=== PATIENT | female | born 1960 | race Caucasian/White ===

== ENCOUNTER 2024-09-05 14:42 | Outpatient (CLI) | payer MEDICARE, MEDICAID, SELFPAY ==
--- NOTE | 2024-09-05 14:46 | CA_ITS ---
APPROVED REPORT EXAM: Comprehensive 2D, Doppler, and color-flow Echocardiogram [employer]: Ricarda Murray RVT Ht: 5 ft 2 in Wt: 155lbs BSA: 1.72 BP: 115/66 mmHg Indications: HTN,DM,HLD,FATIGUE 2D Dimensions LA Volume 55.30 mL LA Volume Index 32.15 mL/m2 (M/F) 16-34 M-Mode Dimensions RVDd 2.56 cm (0.9-2.6) LA Diam 3.14 cm (1.9-4.0) LVDd 4.13 cm (3.5-5.7) LVDs 2.81 cm (3.5-5.7) IVSd 1.78 cm (0.6-1.1) PWd 0.50 cm (0.6-1.1) EF (Teich) 60.50% FS 32.00% EDV (Teich) 75.50 mL TAPSE 2.12 (<1.7) ESV (Teich) 29.80 mL LV Diastology E Decel Time 150 (160-240 msec) E/A Ratio 0.8 Aortic Valve DONOVAN Index 1.51 cm2/m2 AoV Peak Fabian. 125.0 (50-130 cm/s) AO Peak GR. 6.20 mmHg AO Mean GR. 4.60 (<5 mmHg) AO VTI 23.3 (18-25 cm) DONOVAN (VTI) 2.66 (2.5-4.5 cm2) Mitral Valve MV E Max Fabian. 105.0 (40-130 cm/s) MV A Velocity 126.0 (40-130 cm/s) E/A Ratio 0.83 MV PHT 44.0 ms Pulmonary Valve PV Peak Velocity 62.0 (50-150 cm/s) Left Ventricle The left ventricle is normal size. The left ventricular systolic function is normal. The left ventricular ejection fraction is within the normal range. There is increased LV wall thickness. There is normal LV segmental wall motion. The left ventricular diastolic function is normal. LVEF is 55%. Right Ventricle The right ventricle is normal size. The right ventricular systolic function is normal. Atria The left atrium is mildly dilated. The right atrium size is normal. There is no Doppler evidence of interatrial shunt. Aortic Valve Aortic valve is mildly thickened. There is no aortic valvular stenosis. Trace aortic regurgitation. Mitral Valve The mitral valve leaflets are mildly thickened. No evidence of mitral valve stenosis. Mild mitral regurgitation. Tricuspid Valve The tricuspid valve leaflets are thin and pliable. Trace tricuspid regurgitation. There is insufficient TR jet to estimate RVSP. Pulmonic Valve The pulmonary valve is normal in structure. Trace pulmonic regurgitation. Great Vessels The aortic root is normal in size. The ascending aorta is not well-visualized. IVC is normal in size and collapses >50% with inspiration. Pericardium There is no pericardial effusion. Other Information Study Quality: Fair Conclusion Normal biventricular systolic function. Mild LA dilation. Mild MR. Electronically signed by : Ama Atkins MD 09/11/2024 02:25:25
--- NOTE | 2024-09-05 14:53 | US_ITS ---
FINAL REPORT CLINICAL HISTORY: Hypertension COMPARISON: None FINDINGS: RENAL ULTRASOUND Ultrasound images of the kidneys were obtained. Incidental note is made of fatty change of the liver. The right kidney measures 9.3 cm in length. It is normal echogenicity. There is no hydronephrosis. The left kidney measures 9.0 cm in length. It is normal echogenicity. There is no hydronephrosis. IMPRESSION: Normal renal ultrasound. Reviewed, Interpreted and Dictated by Char Covington MD Transcribed by Helena Eli Authenticated and [facility][1]
== END 2024-09-05 23:59 | disposition home or self-care (01) ==
LOC: RAD 14:44
PROVIDERS: Visit Provider Physician Assistant
DX: R94.31 Abnormal electrocardiogram [ECG] [EKG] (principal); E11.9 Type 2 diabetes mellitus without complications; E78.5 Hyperlipidemia, unspecified; I10 Essential (primary) hypertension
CPT/HCPCS: 76770; 93306

== ENCOUNTER 2024-09-10 08:53 | Outpatient (CLI) | payer MEDICARE, MEDICAID, SELFPAY ==
--- NOTE | 2024-09-10 09:00 | CA_ITS ---
FINAL REPORT TECHNIQUE: Spectral and color Doppler exam CLINICAL HISTORY: HTN COMPARISON: none FINDINGS: DOPPLER RENAL VESSELS Intrarenal resistive indices on the right are 0.6--0.79, normal. Intrarenal resistive indices on the left are 0.52-0.81, normal . Renal size is normal and symmetric. Right main renal artery systolic velocity: 140 cm/sec. Aortic-right renal artery flow velocity ratio: 1.37 COMMENT: No evidence of hemodynamically significant renal artery stenosis Left main renal artery systolic velocity: 103 cm/sec. Aortic-left renal artery flow velocity ratio: 0.87 COMMENT: No evidence of hemodynamically significant renal artery stenosis . IMPRESSION: Stenosis classified as less than 50% bilaterally. CTA or gadolinium-enhanced MR may be considered as a more sensitive exam. Alternatively noncontrast MRI may be considered for assessing main renal arteries for stenosis as a more sensitive exam if the patient has renal insufficiency. Reviewed, Interpreted and Dictated by Char Covington MD Transcribed by Helena Eli Authenticated and [facility]
--- NOTE | 2024-09-10 09:00 | CA_ITS ---
FINAL REPORT CLINICAL HISTORY: LT CARTOID BRUIT,HTN COMPARISON: None FINDINGS: RIGHT CAROTID: CCA PSV - 62 cm/sec ICA PSV - 99cm/sec ICA/CCA PSV ratio - 1.6. Comments: Moderate plaque disease is noted. LEFTCAROTID: CCA PSV - 72. cm/sec ICA PSV - 68. cm/sec ICA/CCA PSV ratio - 1.0. Comments: Moderate plaque disease is noted. Antegrade flow is seen within the vertebral arteries. IMPRESSION: Carotid stenosis classified less than 50% Reviewed, Interpreted and Dictated by Char Covington MD Transcribed by Mackenzie Lynn Authenticated and [facility]
== END 2024-09-10 23:59 | disposition home or self-care (01) ==
LOC: RT 08:54
PROVIDERS: Visit Provider Physician Assistant
DX: R09.89 Other specified symptoms and signs involving the circulatory and respiratory systems (principal); I10 Essential (primary) hypertension; E11.9 Type 2 diabetes mellitus without complications; R94.31 Abnormal electrocardiogram [ECG] [EKG]; R47.81 Slurred speech; E78.49 Other hyperlipidemia
CPT/HCPCS: 93880; 93976

== ENCOUNTER 2025-04-01 08:34 | Outpatient (CLI) | payer MEDICARE, MEDICAID, SELFPAY ==
--- OUTSIDE RECORDS SUMMARY | 2025-04-01 08:53 | XMS_ITS | Clinical Summary ---
Author Organization Healthcare Address [address] [place] [address] Care Team Providers Care Retail Event Coordinator Name Role Phone Carol Maza MD Primary Care Provider Allergies Active Allergy Reactions Criticality Noted Date Comments Prednisone Other - please docum ent in the comment field,Unknown - Patient states they do not know rxn details Medium 05/02/2016 JITTERY---okay at lower doses Medications losartan-hydroCHLO ROthiazide (Hyzaar) 100-12.5 MG tablet 01/09/2021 Active Active Problems Problem Noted Date Diagnosed Date Proximal humerus fracture 03/26/2018 Family History Medical History Relation Name Comments Cardiac disorder Father Hypertension Father Hypertension Mother Other cancer Sibling Relation Name Status Comments Father Mother Sibling Social History Tobacco Use Types Packs/Day Years Used Date Smoking Tobacco: Never Smokeless Tobacco: Never Alcohol Use Standard Drinks/Week Comments Yes 0 (1 standard drink = 0.6 oz pur e alcohol) Comments Unknown Sex and Gender Information Value Date Recorded Sex Assigned at Not on file Legal Sex Female 7:58 PM EDT Gender Identity Not on file Sexual Orientation Not on file Last Filed Vital Signs Vital Sign Reading Time Taken Comments Blood Pressure 174/88 03/17/2021 8:03 AM EDT Pulse 87 03/17/2021 8:03 AM EDT Temperature 36.3 C (97.4 F) 01/02/2019 10:22 AM EDT Respiratory Rate 20 11/20/2018 1:48 PM EDT Oxygen Saturation 97% 03/17/2021 8:03 AM EDT Inhaled Oxygen Concentration - - Weight 71.7 kg (158 lb) 03/17/2021 8:03 AM EDT Height 157.5 cm (5' 2 ) 03/17/2021 8:03 AM EDT Body Mass Index 28.9 03/17/2021 8:03 AM EDT Plan of Treatment Health Maintenance Due Date Last Done Comments [facility]-Bone Density Scan 1960 [facility]Y-Depression Screening 1960 [facility]Y-Infant/Child/Adol SDOH Screenings 1960 UKY- SDOH Screenings 1976 UKY-Adult SDOH Screenings 1976 UKY-DTaP,Tdap,and Td Vaccine s (1 - Tdap) 1977 CT Colonography 10/18/2003 Colonoscopy 10/18/2003 FIT-DNA 10/18/2003 FIT 10/18/2003 FOBT 10/18/2003 Sigmoidoscopy 10/18/2003 UKY-Colorectal Cancer Screening 10/18/2003 UKY-Pneumococcal Vaccine: 50 + Years (1 of 1 - PCV) 2008 UKY-Zoster Vaccines (1 of 2) 2008 GPI-BPDJM-21 Vaccine ( - 20 24-25 season) 2024 UKY-Influenza Vaccine (#1) 2025 05/15/2020 UKY-RSV Vaccine: 60+ Years o r (1 - 1-dose 75+ series) 2033 [facility]Y-Cervical Cancer Screening Discontinued [facility]-HPV/Cotest Discontinued 11/19/1996 UKY-Pap Smear Discontinued 11/19/1996 HPV Vaccines Aged Out No longer eligi ble based on patient's age to complete this topic UKY-HIB Vaccines Aged Out No longer e ligible based on patient's age to complete this topic UKY-Hepatitis A Vaccines Aged Out No longer eligible based on patient's age to complete this topic UKY-IPV Vaccines Aged Out No longer e ligible based on patient's age to complete this topic UKY-Rotavirus Vaccines Aged Out No lo nger eligible based on patient's age to complete this topic Procedures Procedure Name Priority Date/Time Associated Diagnosis Comments CYTO DATA CONVERSION Routine 11/19/1996 12:00 AM EDT from Last 3 Months or Most Recently Relevant to Health Maintenance Results * Cytology (11/19/1996 12:00 AM EDT) 11/19/1996 11/20/1996 Narrative SUNQUEST - 11/28/1996 12:00 AM EDT [facility] MR #: [id number] [facility] [address] [place], [place] [address] 1960 (Age: 36) FW Collect Date: 11/19/1996 00:00 Receipt Date: 11/20/1996 00:00 Page 1 DEPARTMENT OF PATHOLOGY AND LABORATORY MEDICINE CYTOPATHOLOGY REPORT Email: [email or web address] * Converted Case * This report may not match the original report format ATTENDING MD/Practitioner: Johnny Cabral MD Service: OB Location: Reported: 11/28/1996 00:00 Collected: 11/19/1996 00:00 INTERPRETATION CERVICAL SCRAPE/ENDOCERVICAL SWAB WITHIN NORMAL LIMITS. SATISFACTORY BUT LIMITED BY SPARSE TO NO ENDOCERVICAL CELLS. Electronically Signed Out By Adithya Mcgee TOSHIA Tavarez (ASCP) No Signature Required Cervical cytology is a screening test primarily for squamous cancers and precursors and has associated false negative and positive results. New technologies such as liquid based sampling may decrease but will not eliminate all false negative results. Regular screening and follow-up of unexplained clinical signs and symptoms are recommended to minimize false negative results. Please see the ASCCP website (www.asccp.org) for followup recommendations. If HPV testing was requested, correlation with the results is suggested (please call Microbiology at [phone] for results). CLINICAL INFORMATION: Menstrual History: {Not Provided} Date of Last Menstrual Period: {Not Provided} SPECIMEN DESCRIPTION: A: CERVICAL/VAGINAL SMEAR, PAP ICD: F: {Not Entered} SNOMED CODES: 1; [id number] In cases where a pathologist has signed out the report, the service has been rendered in part by a resident. The signing pathologist has performed and is responsible for the reported pathologic evaluation. us Historical Provider LAB PATHOLOGY ORDERABLES Fin al Result SUNQUEST from Last 3 Months or Most Recently Relevant to Health Maintenance Insurance Care Teams Retail Event Coordinator Relationship Specialty Start Date End Date Carol Maza MD [address] [place] [address] [address] [place] [address] PCP - General 12/11/20
--- OUTSIDE RECORDS SUMMARY | 2025-04-01 08:53 | XMS_ITS | Clinical Summary ---
Author Organization [facility] Address [address] [place] [address] Care Team Providers Care Demand Planning Analyst Name Role Phone Francine Duque MD Primary Care Provider [phone] Allergies Active Allergy Reactions Criticality Noted Date Comments Prednisone Other (See Comments) Medium 05/02/2016 JITTERY---okay at lower doses Medications losartan-hydroc hlorothiazide (HYZAAR) 100-12.5 MG per tablet Take 1 tablet by mouth Daily. 0 9 Active albuterol sulfate HFA 108 (90 Base) MCG/ACT inhaler Inhale 2 puffs Every 4 (Four) Hours As Needed for Wheezing or Shortness of Air. 1 inhaler 9 Active Active Problems No known active problems Family History Medical History Relation Name Comments Heart disease Father Heart disease Mother Relation Name Status Comments Father Mother Social History Tobacco Use Types Packs/Day Years Used Date Smoking Tobacco: Never Alcohol Use Standard Drinks/Week Comments No 0 (1 standard drink = 0.6 oz pur e alcohol) Abuse Screen Answer Date Recorded Unsafe at Home or Work/School Not on file Feels Threatened by Someone? Not on file 05/2023 Does Anyone Keep You from Co ntacting Others or Doint Things Outside the Home? Not on file 05/10/2023 Physical Sign of Abuse Present Not on file 1 Housing Stability Answer Date Recorded Current Living Arrangements Not on file 04/30 Potentially Unsafe Housing Conditions Not on melanie e 05/10/2023 Family and Community Support Answer Griffin e Recorded Help with Day-to-Day Activities Not on file 05/10/2023 Lonely or Isolated Not on file 05/10/2023 Employment Answer Date Recorded Do you want help finding or keeping work or a demond b? Not on file 05/10/2023 Disabilities Answer Date Recorded Concentrating, Remembering, or Making Decisions Difficulty Not on file 05/10/2023 Doing Errands Independently Difficulty Not on fi le 05/10/2023 Education Answer Date Recorded Help with school or training? Not on file Preferred Language Not on file 05/10/2023 Comments No Sex and Gender Information Value Date Recorded Sex Assigned at Not on file Legal Sex Female 4:18 PM EDT Gender Identity Not on file Sexual Orientation Not on file Last Filed Vital Signs Vital Sign Reading Time Taken Comments Blood Pressure 140/84 06/18/2019 10:07 AM EST Pulse 100 06/18/2019 10:07 AM EST Temperature 37.1 C (98.8 F) 06/18/2019 10:07 AM EST Respiratory Rate 16 06/18/2019 10:07 AM EST Oxygen Saturation 98% 06/18/2019 10:07 AM EST Inhaled Oxygen Concentration - - Weight 68.9 kg (152 lb) 06/18/2019 10:07 AM EST Height 157.5 cm (5' 2 ) 06/18/2019 10:07 AM EST Body Mass Index 27.8 06/18/2019 10:07 AM EST Plan of Treatment Health Maintenance Due Date Last Done Comments DXA SCAN 1960 TDAP/TD VACCINES (1 - Tdap) 1977 MAMMOGRAM 1998 COLOGUARD 10/18/2003 COLON CANCER SCREENING 5 YEAR SIGMOIDOSCOPY 10/18/2003 COLONOSCOPY 10/18/2003 COLORECTAL CANCER SCREENING 10/18/2003 CT COLONOGRAPHY 10/18/2003 FECAL OCCULT BLOOD TEST 10/18/2003 FIT Testing (1 year) 10/18/2003 Pneumococcal Vaccine 50+ (1 of 1 - PCV) 2008 ZOSTER VACCINE (1 of 2) 2008 ANNUAL PHYSICAL 11/22/2016 HEPATITIS C SCREENING 11/22/2016 COVID-19 Vaccine (1 - season) 2024 INFLUENZA VACCINE 04/30/2025 Insurance [facility] MEDICARE ADVANTAGE [facility] HMO Care Teams Demand Planning Analyst Relationship Specialty Start Date End Date Francine Duque MD [address] [facility] [address] [place] [address] PCP - General Family Medicine 05/02/16
[2025-04-01 09:03] LABS: Hematocrit 34.8 % (37.0-47.0); Hemoglobin 11.1 g/dL (12.2-16.2); Immature Granulocytes % 0.5 %; Mean Corpuscular HGB Conc 31.9 g/dL (31.8-35.4); Mean Corpuscular Hemoglobin 28.8 pg (27.0-31.2); Mean Corpuscular Volume 90.2 fl (81-99); Nucleated Red Blood Cells % 0 %; Platelet Count 272 K/mm3 (142-424); Red Blood Count 3.86 M/mm3 (4.20-5.40); Red Cell Distribution Width-SD 42.9 fL; White Blood Count 8.6 K/mm3 (4.8-10.8)
[2025-04-01 09:42] LABS: Alanine Aminotransferase 12 U/L (12-78); Albumin Level 3.3 g/dl (3.5-5.0); Alkaline Phosphatase 112 U/L (38-126); Anion Gap 8.2 mEq/L (5-15); Aspartate Amino Transferase 21 U/L (14-36); Bilirubin,Direct 0.2 mg/dl (0.0-0.4); Bilirubin,Indirect 0.1 mg/dL (0.0-0.9); Bilirubin,Total 0.3 mg/dl (0.2-1.3); Bilirubin,Unconjugated 0.2 mg/dL (0.0-1.1); Blood Urea Nitrogen 40 mg/dl (7-17); Calcium 9.3 mg/dl (8.4-10.2); Carbon Dioxide 25 mmol/L (22.0-30.0); Chloride 112 mmol/L (98-107); Cholesterol 187 mg/dl (140-200); Creatinine,Serum 2.00 mg/dl (0.52-1.04); Estimated Glomerular Filt Rate 25 ml/min (>60); GFR (African American) 30 ML/MIN (>60); Glucose 153 mg/dl (74-100); HDL Cholesterol 35 mg/dl (40-60); Sodium 139 mmol/L (136-145); Total Protein,Serum 6.5 g/dl (6.3-8.2); Triglycerides 202 mg/dl (30-150)
[2025-04-01 09:59] LABS: Free Thyroxine Index 2.9 ug/dL (5.93-13.13); T4 (Thyroxine) 8.3 ug/dl (5.53-11.0); Triiodothryronine (T3) Uptake 35 % (23.5-40.5)
[2025-04-01 10:03] LABS: Potassium 6.2 mmoL/L (3.5-5.1)
[2025-04-01 10:13] LABS: Thyroid Stimulating Hormone 5.26 uIU/mL (0.465-4.68)
[2025-04-01 10:26] LABS: Hemoglobin A1C 7.2 % (4.0-6.0)
== END 2025-04-01 23:59 | disposition home or self-care (01) ==
PROVIDERS: PCP Emergency Medicine; Visit Provider Physician Assistant
DX: E78.5 Hyperlipidemia, unspecified (principal); I10 Essential (primary) hypertension; E11.9 Type 2 diabetes mellitus without complications
CPT/HCPCS: 36415; 80048; 80061; 80076; 83036; 84436; 84443; 84479; 85025

== ENCOUNTER 2025-04-02 09:07 | Outpatient (CLI) | payer MEDICARE, MEDICAID, SELFPAY ==
--- OUTSIDE RECORDS SUMMARY | 2025-04-02 09:24 | XMS_ITS | Clinical Summary ---
Author Organization Healthcare Address [address] [place] [address] Care Team Providers Care Vp Platforms Name Role Phone Carol Maza MD Primary Care Provider [phone] Allergies Active Allergy Reactions Criticality Noted Date [...] 2008 UKY-Zoster Vaccines (1 of 2) 2008 [id number]-20 Vaccine ( - 20 24-25 season) 2024 [...] Narrative SUNQUEST - 11/28/1996 12:00 AM EDT [facility] MR #: [id number] [facility] [address] [place], [place] [address] 1960 (Age: 36) FW Collect Date: 11/19/1996 00:00 Receipt Date: 11/20/1996 00:00 Page 1 DEPARTMENT OF PATHOLOGY AND LABORATORY MEDICINE CYTOPATHOLOGY REPORT Email: [email or web address] * Converted Case * This report may [...] results is suggested (please call Microbiology at [phone] for results). CLINICAL INFORMATION: Menstrual History: {Not Provided} Date of Last Menstrual Period: {Not Provided} SPECIMEN DESCRIPTION: A: CERVICAL/VAGINAL SMEAR, PAP ICD: F: {Not Entered} SNOMED CODES: 1; [id number] In cases where a pathologist has signed out the report, the service has been rendered in part by a resident. The signing pathologist has performed and is responsible for the reported pathologic evaluation. us Historical Provider LAB PATHOLOGY ORDERABLES Fin al Result SUNQUEST from Last 3 Months or Most Recently Relevant to Health Maintenance Insurance Care Teams Vp Platforms Relationship Specialty Start Date End Date Carol Maza MD [address] [place] [address] [address] [place] [address] PCP - General 12/11/20
--- OUTSIDE RECORDS SUMMARY | 2025-04-02 09:24 | XMS_ITS | Clinical Summary ---
Author Organization [facility] Address [address] [place] [address] Care Team Providers Care Senior Administrative Assistant Name Role Phone Francine Duque MD Primary Care Provider [phone] Allergies Active Allergy Reactions Criticality Noted Date [...] - season) 2024 INFLUENZA VACCINE 04/30/2025 Insurance [facility] MEDICARE ADVANTAGE [facility] HMO Care Teams Senior Administrative Assistant Relationship Specialty Start Date End Date Francine Duque MD [address] [facility] [address] [place] [address] PCP - General Family Medicine 05/02/16
[2025-04-02 09:33] LABS: Anion Gap 10.9 mEq/L (5-15); Blood Urea Nitrogen 37 mg/dl (7-17); Calcium 9.3 mg/dl (8.4-10.2); Carbon Dioxide 23 mmol/L (22.0-30.0); Chloride 112 mmol/L (98-107); Creatinine,Serum 1.90 mg/dl (0.52-1.04); Estimated Glomerular Filt Rate 26 ml/min (>60); GFR (African American) 32 ML/MIN (>60); Glucose 157 mg/dl (74-100); Potassium 5.9 mmoL/L (3.5-5.1); Sodium 140 mmol/L (136-145)
== END 2025-04-02 23:59 | disposition home or self-care (01) ==
PROVIDERS: PCP Emergency Medicine; Visit Provider Physician Assistant
DX: E87.5 Hyperkalemia (principal); N17.9 Acute kidney failure, unspecified
CPT/HCPCS: 36415; 80048

== ENCOUNTER 2025-04-09 08:45 | Outpatient (CLI) | payer MEDICARE, MEDICAID, SELFPAY ==
--- OUTSIDE RECORDS SUMMARY | 2025-04-09 09:04 | XMS_ITS | Clinical Summary ---
Author Organization Healthcare Address [address] [place] [address] Care Team Providers Care Brazer Helper Induction Name Role Phone Carol Maza MD Primary [...] 2008 UKY-Zoster Vaccines (1 of 2) 2008 [id number] Vaccine ( - 20 24-25 season) 2025 UKY-Influenza Vaccine (#1) 2025 05/15/2020 UKY-RSV Vaccine: [...] Narrative SUNQUEST - 11/28/1996 12:00 AM EDT [facility] MR #: [id number] [facility] [address] [place], [place] [id number] 1960 (Age: 36) FW Collect Date: 11/19/1996 00:00 Receipt Date: 11/20/1996 00:00 Page 1 DEPARTMENT OF PATHOLOGY AND LABORATORY MEDICINE CYTOPATHOLOGY REPORT Email: [phone] * Converted Case * This report may [...] results is suggested (please call Microbiology at [phone] for results). CLINICAL INFORMATION: Menstrual History: {Not Provided} Date of Last Menstrual Period: {Not Provided} SPECIMEN DESCRIPTION: A: CERVICAL/VAGINAL SMEAR, PAP ICD: F: {Not Entered} SNOMED CODES: 1; [id number] In cases where a pathologist has signed out the report, the service has been rendered in part by a resident. The signing pathologist has performed and is responsible for the reported pathologic evaluation. us Historical Provider LAB PATHOLOGY ORDERABLES Fin al Result SUNQUEST from Last 3 Months or Most Recently Relevant to Health Maintenance Insurance Care Teams Brazer Helper Induction Relationship Specialty Start Date End Date Carol Maza MD [address] [place] [address] [address] [place] [address] PCP - General 12/11/20
--- OUTSIDE RECORDS SUMMARY | 2025-04-09 09:04 | XMS_ITS | Clinical Summary ---
Author Organization [facility] Address [address] [place] [address] Care Team Providers Care Manager Laboratory Name Role Phone Francine Duque MD Primary Care Provider [phone] Allergies Active Allergy Reactions Criticality Noted Date [...] SCREENING 11/22/2016 COVID-19 Vaccine (1 - season) 2025 INFLUENZA VACCINE 04/30/2025 Insurance [facility] MEDICARE ADVANTAGE [facility] HMO Care Teams Manager Laboratory Relationship Specialty Start Date End Date Francine Duque MD [address] [facility] [address] [place] [address] PCP - General Family Medicine 05/02/16
[2025-04-09 12:38] LABS: Chloride 116 mmol/L (98-107); Sodium 140 mmol/L (136-145)
[2025-04-09 12:41] LABS: Anion Gap 8.1 mEq/L (5-15); Blood Urea Nitrogen 29 mg/dl (7-17); Carbon Dioxide 22 mmol/L (22.0-30.0); Creatinine,Serum 1.40 mg/dl (0.52-1.04); Estimated Glomerular Filt Rate 38 ml/min (>60); GFR (African American) 46 ML/MIN (>60)
[2025-04-09 12:42] LABS: Calcium 9.3 mg/dl (8.4-10.2); Glucose 157 mg/dl (74-100)
[2025-04-09 13:08] LABS: Potassium 6.1 mmoL/L (3.5-5.1)
== END 2025-04-09 23:59 | disposition home or self-care (01) ==
LOC: LAB 08:46
PROVIDERS: PCP Emergency Medicine; Visit Provider Physician Assistant
DX: E87.5 Hyperkalemia (principal); N17.9 Acute kidney failure, unspecified
CPT/HCPCS: 36415; 80048

== ENCOUNTER 2025-04-10 09:32 | Emergency (ER) | payer MEDICARE, MEDICAID, SELFPAY ==
[2025-04-10 09:56] VITALS: BP 220/108; PULSE 78; RESP 16; TEMP 36.6; O2SAT 98; BMI 28.3
[2025-04-10 10:01] VITALS: BP 268/124; PULSE 80; O2SAT 97
--- NOTE | 2025-04-10 10:03 | HMH.EDGENADL ---
Discharge Plan Disposition Patient Disposition: Home, Self-Care Prescriptions Prescriptions: New furosemide [Lasix] 20 mg tablet 20 mg PO DAILY Qty: 5 0RF No Action clonidine HCl 0.1 mg tablet 0.1 mg PO BID PRN atorvastatin 40 mg tablet 40 mg PO DAILY spironolactone [Aldactone] 25 mg tablet 25 mg PO DAILY Qty: 30 2RF metformin 750 mg tablet extended release 24 hr 750 mg PO BID Qty: 60 0RF metoprolol succinate [Toprol XL] 50 mg tablet extended release 24 hr 50 mg PO DAILY Qty: 30 5RF hydrochlorothiazide 25 mg tablet 25 mg PO DAILY Qty: 30 5RF irbesartan 150 mg tablet 150 mg PO BID Qty: 60 4RF Referrals Follow up/Referrals: Kaiden Amezcua MD [Primary Care Provider, Medical] - See instructions Activity Restrictions/Add. Instructions Additional Instructions/Restrictions: Stop taking your spironolactone and start taking prescribed Lasix daily. Follow-up with your family practice nurse practitioner on Monday for repeat laboratory workup and follow up. Clinical Impressions Clinical Impression: Hyperkalemia, High blood pressure Instructions Patient Instructions: DI for High Blood Pressure, DI for Hyperkalemia Print Language Print Language: Luxembourgish Discharge ED Provider: Marleny Garza General Adult HPI General Chief complaint: Weakness Stated complaint: high potassium level, sent by doctor Time Seen by Provider: 04/10/25 10:02 Mode of Arrival: Ambulatory Source of Information: Patient Description of Symptoms (Recalled from ER Triage Doc. by RN): Patient states she had routine labs a couple weeks ago, her potassium was high, so they took her off her fluid pills, had it rechecked yesterday, states it was 6 so they told her to come to the ER. History of Present Illness HPI narrative: Patient is a 64-year-old with past medical history significant for hypertension, hyperlipidemia, type 2 diabetes presents the emergency department with hyperkalemia referred here by Dr. Joyner. 1 week ago patient was started on Aldactone 25mg and irbesartan 150mg BID and discontinued amlodipine secondary to leg swelling. Patient has had worsening leg swelling but denies shortness of breath chest pain orthopnea. Patient denies any symptoms of her hyperkalemia no palpitations. Related Data Home Medications ?Medication ?Instructions ?Recorded ?Confirmed atorvastatin 40 mg tablet 40 mg PO DAILY 10/17/24 03/18/25 clonidine HCl 0.1 mg tablet 0.1 mg PO BID PRN 03/18/25 03/18/25 Previous Rx's ?Medication ?Instructions ?Recorded metoprolol succinate 50 mg 50 mg PO DAILY #30 tabs 01/14/25 tablet,extended release 24 hr (Toprol XL) hydrochlorothiazide 25 mg tablet 25 mg PO DAILY #30 tabs 03/10/25 metformin 750 mg tablet,extended 750 mg PO BID #60 tabs 03/18/25 release 24 hr spironolactone 25 mg tablet 25 mg PO DAILY #30 tabs 03/18/25 (Aldactone) irbesartan 150 mg tablet 150 mg PO BID #60 tabs 04/07/25 furosemide 20 mg tablet (Lasix) 20 mg PO DAILY #5 tabs 04/10/25 Allergies Allergy/AdvReac Type Severity Reaction Status Date / Time No Known Allergies Allergy Verified 03/18/25 13:43 [facility] Disclaimer: The information contained in this section may have been updated after the patient was seen, as this information can be updated by other users. Medical History Diabetes High cholesterol High blood pressure Surgical History History of History of shoulder surgery Family History Father No significant family history enlarged heart Social History Smoking Status: Never smoker second hand exposure: Yes alcohol intake: never substance use type: denies use current occupational status: retired Travel in the last 8 weeks?: None Other Medical History Have you received the Pneumonia Vaccine: No ROS Obtained: Yes All systems reviewed & no additional complaints except as documented Physical Exam General General appearance: alert and in no apparent distress Chest Chest inspection: Present normal inspection Respiratory Respiratory exam: Present normal lung sounds bilaterally; Absent respiratory distress Cardiovascular Cardiovascular exam: Present regular rate and normal rhythm Abdominal Exam Abdominal exam: Present soft; Absent distention or tenderness Extremities Exam Extremities exam: Present edema (Bilateral 2+ edema to knees) Neurological Exam Neurological exam: Present alert and oriented X3 Medical Decision Making Medical Records Screening: Per USPSTF and CDC recommendations, given the prevalence of disease in our region, it is our hospital?s policy to screen for HIV and viral Hepatitis for all patients aged 18 and over and those with ongoing risk factors. Reece Inquiry Pt receiving controlled substance: No Vital Signs: 04/10/25 09:56 04/10/25 10:01 04/10/25 11:01 Temperature 98 F Temperature Source Oral Pulse Rate 80 74 Pulse Rate [Right Brachial] 78 Respiratory Rate 16 Blood Pressure 268/124 H 200/94 H Blood Pressure [Right Arm] 220/108 H Blood Pressure Mean [Right Arm] 145 Blood Pressure Source [Right Arm] Automatic Cuff Blood Pressure Position [Right Arm] Sitting 02 Sat by Pulse Oximetry 98 97 98 Oxygen Delivery Method Room Air 04/10/25 12:03 Temperature 98.2 F Temperature Source Pulse Rate 77 Pulse Rate [Right Brachial] Respiratory Rate 20 Blood Pressure 222/98 H Blood Pressure [Right Arm] Blood Pressure Mean [Right Arm] Blood Pressure Source [Right Arm] Blood Pressure Position [Right Arm] 02 Sat by Pulse Oximetry Oxygen Delivery Method Room Air Lab Data Lab Results 04/10/25 10:30: WBC 9.7, RBC 3.61 L, Hgb 10.6 L, Hct 32.4 L, MCV 89.8, MCH 29.4, MCHC 32.7, RDW 13.2, Plt Count 220, MPV 10.9 H, Neut % (Auto) 67.8, Lymph % (Auto) 22.2, [place] % (Auto) 6.0, Eos % (Auto) 3.5, Baso % (Auto) 0.3, Neut # (Auto) 6.6, Lymph # (Auto) 2.2, [place] # (Auto) 0.6, Eos # (Auto) 0.3, Baso # (Auto) 0.0, Sodium 141, Potassium 5.6 H, Chloride 116 H, Carbon Dioxide 21 L, Anion Gap 9.6, BUN 37 H D, Creatinine 1.70 H D, Estimated Creat Clear 36, Estimated GFR 30 L, Est GFR ( Amer) 36 L D, Glucose 152 H, Calcium 9.8, Total Bilirubin 0.4, AST 27, ALT 14, Alkaline Phosphatase 119, Troponin I < 0.01, NT-Pro-B Natriuret Pep 2620 H, Total Protein 6.9, Albumin 3.6, Globulin 3.3 H, Albumin/Globulin Ratio 1.1, HCV Ab RYAN w/Rflx PCR Qn Negative, HIV Ag/Ab Combo Qual Negative 04/10/25 10:30 04/10/25 10:30 Orders (Tests/Meds): ED MEDICATIONS Discontinued Medications Generic Name Dose Route Start Last Admin Trade Name Kevanq PRN Reason Stop Dose Admin Furosemide 40 mg 04/10/25 11:04 04/10/25 11:32 Furosemide 40mg/4ml Vial IV 04/10/25 11:05 40 mg ONCE ONE Administration ORDERS Category Date Time Status XR chest 2V Stat Exams 04/10/25 10:09 Completed Complete Blood Count Auto Diff Stat Lab 04/10/25 10:30 Completed Comprehensive Metabolic Panel Stat Lab 04/10/25 10:30 Completed HIV Combo Stat Lab 04/10/25 10:30 Completed Hepatitis C Ab Qual. W/ RFX Stat Lab 04/10/25 10:30 Completed NT Pro Brain Natriuretic Pep. Stat Lab 04/10/25 10:30 Completed Troponin I Stat Lab 04/10/25 10:30 Completed Medical Decision Narrative: In summary, this 64-year-old female presents to the emergency department today with hyperkalemia from clinic. On initial evaluation patient is significantly hypertensive normal heart rate saturating appropriately on room air afebrile in no acute distress. Differential diagnosis includes but is not limited to heart failure exacerbation including cardiorenal syndrome, FAN on CKD, medication side effect,. Based on these concerns, I ordered CBC CMP troponin BNP chest x-ray EKG ECG personally interpreted demonstrates normal sinus rhythm no ST elevation ST depression or T wave inversions concerning for ischemia no EKG changes from hyperkalemia Patient received 40 mg IV Lasix for treatment. Labs personally reviewed demonstrate improving kidney injury and improving hyperkalemia from prior labs obtained at cardiology office earlier this week. XR personally interpreted demonstrates no significant interstitial edema I had an interactive discussion with cardiology with recommendations to discontinue spironolactone and trial Lasix outpatient and outpatient follow-up with cardiology. On reassessment patient continues to be asymptomatic and agreeable for discharge with outpatient follow-up with cardiology. Critical Care Critical Care Time Critical Care Time: No
--- NOTE | 2025-04-10 10:09 | XR_ITS ---
FINAL REPORT CLINICAL HISTORY: Shortness of breath FINDINGS: PA and lateral views of the chest are obtained. There is no prior exam for comparison. The heart and mediastinum are normal. There are bilateral interstitial opacities which could represent pulmonary edema or pneumonia. There is no pleural effusion or pneumothorax. IMPRESSION: Bilateral interstitial opacities could represent pulmonary edema or pneumonia. Recommend follow-up. Reviewed, Interpreted and Dictated by Annalisa Camarena MD Transcribed by Floresita Mcfarland Authenticated and [facility]
--- OUTSIDE RECORDS SUMMARY | 2025-04-10 10:15 | XMS_ITS | Clinical Summary ---
Author Organization Healthcare Address [address] [place] [address] Care Team Providers Care Pc Analyst Name Role Phone Carol Maza MD Primary [...] 2008 UKY-Zoster Vaccines (1 of 2) 2008 FKM-[id number]-17 Vaccine ( - 20 24-25 season) 2025 [...] EDT [facility] MR #: [id number] [facility] [address] [place], [place] [id number] 1960 (Age: 36) FW Collect Date: 11/19/1996 00:00 Receipt Date: 11/20/1996 00:00 Page 1 DEPARTMENT OF PATHOLOGY AND LABORATORY MEDICINE CYTOPATHOLOGY REPORT Email: [email or web address] [id number] * Converted Case * This report may [...] results is suggested (please call Microbiology at [phone] for results). CLINICAL INFORMATION: Menstrual History: {Not Provided} Date of Last Menstrual Period: {Not Provided} SPECIMEN DESCRIPTION: A: CERVICAL/VAGINAL SMEAR, PAP ICD: F: {Not Entered} SNOMED CODES: 1; B4V652 [id number] [id number] In cases where a pathologist has signed out the report, the service has been rendered in part by a resident. The signing pathologist has performed and is responsible for the reported pathologic evaluation. us Historical Provider LAB PATHOLOGY ORDERABLES Fin al Result SUNQUEST from Last 3 Months or Most Recently Relevant to Health Maintenance Insurance Care Teams Pc Analyst Relationship Specialty Start Date End Date Carol Maza MD [address] [place] [address] [address] [place] [address] PCP - General 12/11/20
--- OUTSIDE RECORDS SUMMARY | 2025-04-10 10:15 | XMS_ITS | Clinical Summary ---
Author Organization [facility] Address [address] [place] [address] Care Team Providers Care Hot Patcher Name Role Phone Francine Duque MD Primary Care Provider [phone] Allergies Active Allergy Reactions Criticality Noted Date [...] - season) 2025 INFLUENZA VACCINE 04/30/2025 Insurance [facility] MEDICARE ADVANTAGE [facility] HMO Care Teams Hot Patcher Relationship Specialty Start Date End Date Francine Duque MD [address] [facility] [address] [place] [address] PCP - General Family Medicine 05/02/16
[2025-04-10 10:43] LABS: Hematocrit 32.4 % (37.0-47.0); Hemoglobin 10.6 g/dL (12.2-16.2); Immature Granulocytes % 0.2 %; Mean Corpuscular HGB Conc 32.7 g/dL (31.8-35.4); Mean Corpuscular Hemoglobin 29.4 pg (27.0-31.2); Mean Corpuscular Volume 89.8 fl (81-99); Nucleated Red Blood Cells % 0 %; Platelet Count 220 K/mm3 (142-424); Red Blood Count 3.61 M/mm3 (4.20-5.40); Red Cell Distribution Width-SD 43.1 fL; White Blood Count 9.7 K/mm3 (4.8-10.8)
[2025-04-10 10:51] LABS: Chloride 116 mmol/L (98-107); Sodium 141 mmol/L (136-145)
[2025-04-10 10:52] LABS: Potassium 5.6 mmoL/L (3.5-5.1)
[2025-04-10 10:54] LABS: Alanine Aminotransferase 14 U/L (12-78); Alkaline Phosphatase 119 U/L (38-126); Aspartate Amino Transferase 27 U/L (14-36); Bilirubin,Total 0.4 mg/dl (0.2-1.3); Blood Urea Nitrogen 37 mg/dl (7-17); Carbon Dioxide 21 mmol/L (22.0-30.0); Creatinine Clearance Estimated 36 mL/min (50-200); Creatinine,Serum 1.70 mg/dl (0.52-1.04); Estimated Glomerular Filt Rate 30 ml/min (>60); GFR (African American) 36 ML/MIN (>60)
[2025-04-10 10:55] LABS: Anion Gap 9.6 mEq/L (5-15); Calcium 9.8 mg/dl (8.4-10.2); Glucose 152 mg/dl (74-100); Total Protein,Serum 6.9 g/dl (6.3-8.2)
[2025-04-10 11:01] VITALS: BP 200/94; PULSE 74; O2SAT 98
[2025-04-10 11:03] LABS: NT Pro Brain Natriuretic Pep. 2620 pg/mL (0-125)
[2025-04-10 11:06] LABS: Troponin I < 0.01 ng/ml (0.00-0.034)
[2025-04-10] MEDS: FUROSEMIDE 40MG/4ML VIAL 40 MG IV (11:32)
[2025-04-10 11:42] LABS: Albumin Level 3.6 g/dl (3.5-5.0); Albumin/Globulin Ratio 1.1 (1.1-1.8); Globulin 3.3 g/dL (1.3-3.2)
[2025-04-10 12:03] VITALS: BP 222/98; PULSE 77; RESP 20; TEMP 36.8; O2SAT 98
[2025-04-10 14:11] LABS: Hepatitis C Ab Qual. W/ RFX NEGATIVE (Negative)
== END 2025-04-10 12:03 | disposition home or self-care (01) ==
PROVIDERS: Emergency Provider Student in an Organized Health Care Education/Training Program; PCP Emergency Medicine
DX: E87.5 Hyperkalemia (principal); E78.5 Hyperlipidemia, unspecified; I10 Essential (primary) hypertension; E11.9 Type 2 diabetes mellitus without complications
CPT/HCPCS: 71046; 80053; 83880; 84484; 85025; 86803; 87389; 93005; 96374; 99284; 99285; J1938

== ENCOUNTER 2025-04-15 08:57 | Outpatient (CLI) | payer MEDICARE, MEDICAID, SELFPAY ==
[2025-04-15 09:33] LABS: Hematocrit 32.6 % (37.0-47.0); Hemoglobin 10.5 g/dL (12.2-16.2); Immature Granulocytes % 0.3 %; Mean Corpuscular HGB Conc 32.2 g/dL (31.8-35.4); Mean Corpuscular Hemoglobin 28.8 pg (27.0-31.2); Mean Corpuscular Volume 89.3 fl (81-99); Nucleated Red Blood Cells % 0 %; Platelet Count 221 K/mm3 (142-424); Red Blood Count 3.65 M/mm3 (4.20-5.40); Red Cell Distribution Width-SD 43.4 fL; White Blood Count 10.3 K/mm3 (4.8-10.8)
--- OUTSIDE RECORDS SUMMARY | 2025-04-15 09:37 | XMS_ITS | Clinical Summary ---
Author Organization Healthcare Address [address] [place] [address] Care Team Providers Care Outside Machinist Apprentice Name Role Phone Carol Maza MD Primary [...] 2008 UKY-Zoster Vaccines (1 of 2) 2008 [id number] Vaccine ( - 20 24-25 season) 2025 [...] Narrative SUNQUEST - 11/28/1996 12:00 AM EDT [facility] MR #: [id number] [facility] [address] [place], [place] [address] 1960 (Age: 36) FW Collect Date: 11/19/1996 00:00 Receipt Date: 11/20/1996 00:00 Page 1 DEPARTMENT OF PATHOLOGY AND LABORATORY MEDICINE CYTOPATHOLOGY REPORT Email: [email or web address] * Converted Case * This report may [...] results is suggested (please call Microbiology at [phone] for results). CLINICAL INFORMATION: Menstrual History: {Not Provided} Date of Last Menstrual Period: {Not Provided} SPECIMEN DESCRIPTION: A: CERVICAL/VAGINAL SMEAR, PAP ICD: F: {Not Entered} SNOMED CODES: 1; J2P198 [id number] P40532 In cases where a pathologist has signed out the report, the service has been rendered in part by a resident. The signing pathologist has performed and is responsible for the reported pathologic evaluation. us Historical Provider LAB PATHOLOGY ORDERABLES Fin al Result SUNQUEST from Last 3 Months or Most Recently Relevant to Health Maintenance Insurance Care Teams Outside Machinist Apprentice Relationship Specialty Start Date End Date Carol Maza MD [address] [place] [address] [address] [place] [address] PCP - General 12/11/20
--- OUTSIDE RECORDS SUMMARY | 2025-04-15 09:37 | XMS_ITS | Clinical Summary ---
Author Organization [facility] Address [address] [place] [address] Care Team Providers Care Proof Operator Name Role Phone Francine Duque MD Primary Care Provider [phone] Allergies Active Allergy Reactions Criticality Noted Date [...] season) 2025 INFLUENZA VACCINE 04/30/2025 Insurance [facility] MEDICARE ADVANTAGE [facility] HMO Care Teams Proof Operator Relationship Specialty Start Date End Date Francine Duque MD [address] [facility] [address] [place] [address] PCP - General Family Medicine 05/02/16
[2025-04-15 10:34] LABS: Alanine Aminotransferase 12 U/L (12-78); Albumin Level 3.2 g/dl (3.5-5.0); Alkaline Phosphatase 111 U/L (38-126); Anion Gap 8.8 mEq/L (5-15); Aspartate Amino Transferase 22 U/L (14-36); Bilirubin,Direct 0.1 mg/dl (0.0-0.4); Bilirubin,Indirect 0.2 mg/dL (0.0-0.9); Bilirubin,Total 0.3 mg/dl (0.2-1.3); Bilirubin,Unconjugated 0.3 mg/dL (0.0-1.1); Blood Urea Nitrogen 48 mg/dl (7-17); Calcium 9.0 mg/dl (8.4-10.2); Carbon Dioxide 23 mmol/L (22.0-30.0); Chloride 113 mmol/L (98-107); Cholesterol 187 mg/dl (140-200); Creatinine,Serum 1.90 mg/dl (0.52-1.04); Estimated Glomerular Filt Rate 26 ml/min (>60); GFR (African American) 32 ML/MIN (>60); Glucose 215 mg/dl (74-100); HDL Cholesterol 37 mg/dl (40-60); Magnesium 1.6 mg/dl (1.6-2.3); Potassium 4.8 mmoL/L (3.5-5.1); Sodium 140 mmol/L (136-145); Total Protein,Serum 6.2 g/dl (6.3-8.2); Triglycerides 291 mg/dl (30-150)
[2025-04-15 10:37] LABS: Free T4 (Free Thyroxine) 1.09 ng/dl (0.78-2.19)
[2025-04-15 11:05] LABS: Thyroid Stimulating Hormone 4.46 uIU/mL (0.465-4.68)
[2025-04-15 12:54] LABS: Hemoglobin A1C 7.0 % (4.0-6.0)
== END 2025-04-15 23:59 | disposition home or self-care (01) ==
PROVIDERS: PCP Emergency Medicine; Visit Provider Physician Assistant
DX: E78.00 Pure hypercholesterolemia, unspecified (principal); I10 Essential (primary) hypertension; E11.9 Type 2 diabetes mellitus without complications
CPT/HCPCS: 36415; 80048; 80061; 80076; 83036; 83735; 84439; 84443; 85025

== ENCOUNTER 2025-04-29 14:51 | Outpatient (CLI) | payer MEDICARE, MEDICAID, SELFPAY ==
--- OUTSIDE RECORDS SUMMARY | 2025-04-29 14:53 | XMS_ITS | Clinical Summary ---
Author Organization [facility] Address [address] [place] [address] Care Team Providers Care X Ray Tech Name Role Phone Francine Duque MD Primary Care Provider [phone] Allergies Active Allergy Reactions Criticality Noted Date [...] ANNUAL PHYSICAL 11/22/2016 HEPATITIS C SCREENING 11/22/2016 INFLUENZA VACCINE 02/28/2025 COVID-19 Vaccine ( - season) 2025 Insurance [facility] MEDICARE ADVANTAGE [facility] HMO Care Teams X Ray Tech Relationship Specialty Start Date End Date Francine Duque MD [address] [facility] [address] [place] [address] PCP - General Family Medicine 05/02/16
--- OUTSIDE RECORDS SUMMARY | 2025-04-29 14:53 | XMS_ITS | Clinical Summary ---
Author Organization Healthcare Address [address] [place] [address] Care Team Providers Care Massotherapist Name Role Phone Carol Maza MD Primary [...] 2008 UKY-Zoster Vaccines (1 of 2) 2008 XRX-MMHVT-29 Vaccine ( - 20 24-25 season) 2025 [...] Narrative SUNQUEST - 11/28/1996 12:00 AM EDT [facility] MR #: [id number] [facility] [address] [place], [place] [address] 1960 (Age: 36) FW Collect Date: 11/19/1996 00:00 Receipt Date: 11/20/1996 00:00 Page 1 DEPARTMENT OF PATHOLOGY AND LABORATORY MEDICINE CYTOPATHOLOGY REPORT Email: [email or web address] * Converted Case * This report may [...] results is suggested (please call Microbiology at [phone] for results). CLINICAL INFORMATION: Menstrual History: {Not Provided} Date of Last Menstrual Period: {Not Provided} SPECIMEN DESCRIPTION: A: CERVICAL/VAGINAL SMEAR, PAP ICD: F: {Not Entered} SNOMED CODES: 1; B3U447 I28784 S54413 In cases where a pathologist has signed out the report, the service has been rendered in part by a resident. The signing pathologist has performed and is responsible for the reported pathologic evaluation. us Historical Provider LAB PATHOLOGY ORDERABLES Fin al Result SUNQUEST from Last 3 Months or Most Recently Relevant to Health Maintenance Insurance Care Teams Massotherapist Relationship Specialty Start Date End Date Carol Maza MD [address] [place] [address] [address] [place] [address] PCP - General 12/11/20
[2025-04-29 17:08] LABS: Anion Gap 12.9 mEq/L (5-15); Blood Urea Nitrogen 30 mg/dl (7-17); Calcium 9.1 mg/dl (8.4-10.2); Carbon Dioxide 23 mmol/L (22.0-30.0); Chloride 108 mmol/L (98-107); Creatinine,Serum 1.60 mg/dl (0.52-1.04); Estimated Glomerular Filt Rate 32 ml/min (>60); GFR (African American) 39 ML/MIN (>60); Glucose 155 mg/dl (74-100); Potassium 5.9 mmoL/L (3.5-5.1); Sodium 138 mmol/L (136-145)
== END 2025-04-29 23:59 | disposition home or self-care (01) ==
LOC: LAB 14:51
PROVIDERS: Nurse Practitioner; PCP Emergency Medicine; Visit Provider Physician Assistant
DX: E87.5 Hyperkalemia (principal); N17.9 Acute kidney failure, unspecified
CPT/HCPCS: 36415; 80048

== ENCOUNTER 2025-05-02 09:56 | Outpatient (CLI) | payer MEDICARE, MEDICAID, SELFPAY ==
--- OUTSIDE RECORDS SUMMARY | 2025-05-02 09:59 | XMS_ITS | Clinical Summary ---
Author Organization Healthcare Address [address] [place] [address] Care Team Providers Care Chief Internal Auditor Name Role Phone Carol Maza MD Primary Care Provider [phone] Allergies Active Allergy Reactions Criticality Noted Date [...] 2008 UKY-Zoster Vaccines (1 of 2) 2008 [id number]-42 Vaccine ( - 20 24-25 season) 2025 [...] - 11/28/1996 12:00 AM EDT [facility] MR #: [id number] [facility] [address] [place], [place] [id number] 1960 (Age: 36) FW Collect Date: 11/19/1996 00:00 Receipt Date: 11/20/1996 00:00 Page 1 DEPARTMENT OF PATHOLOGY AND LABORATORY MEDICINE CYTOPATHOLOGY REPORT Email: [email or web address] * Converted Case * This report may [...] results is suggested (please call Microbiology at [phone] for results). CLINICAL INFORMATION: Menstrual History: {Not Provided} Date of Last Menstrual Period: {Not Provided} SPECIMEN DESCRIPTION: A: CERVICAL/VAGINAL SMEAR, PAP ICD: F: {Not Entered} SNOMED CODES: 1; A2O389 B96625 R75012 In cases where a pathologist has signed out the report, the service has been rendered in part by a resident. The signing pathologist has performed and is responsible for the reported pathologic evaluation. us Historical Provider LAB PATHOLOGY ORDERABLES Fin al Result SUNQUEST from Last 3 Months or Most Recently Relevant to Health Maintenance Insurance Care Teams Chief Internal Auditor Relationship Specialty Start Date End Date Carol Maza MD [address] [place] [address] [address] [place] [address] PCP - General 12/11/20
--- OUTSIDE RECORDS SUMMARY | 2025-05-02 09:59 | XMS_ITS | Clinical Summary ---
Author Organization [facility] Address [address] [place] [address] Care Team Providers Care Theoretical Physics Teacher Name Role Phone Francine Duque MD Primary Care Provider [phone] Allergies Active Allergy Reactions Criticality Noted Date [...] COVID-19 Vaccine ( - season) 2025 Insurance [facility] MEDICARE ADVANTAGE [facility] HMO Care Teams Theoretical Physics Teacher Relationship Specialty Start Date End Date Francine Duque MD [address] [facility] [place] [address] PCP - General Family Medicine 05/02/16
[2025-05-02 11:26] LABS: Anion Gap 10.9 mEq/L (5-15); Blood Urea Nitrogen 30 mg/dl (7-17); Calcium 9.1 mg/dl (8.4-10.2); Carbon Dioxide 27 mmol/L (22.0-30.0); Chloride 107 mmol/L (98-107); Creatinine,Serum 1.80 mg/dl (0.52-1.04); Estimated Glomerular Filt Rate 28 ml/min (>60); GFR (African American) 34 ML/MIN (>60); Glucose 180 mg/dl (74-100); Potassium 5.9 mmoL/L (3.5-5.1); Sodium 139 mmol/L (136-145)
== END 2025-05-02 23:59 | disposition home or self-care (01) ==
LOC: LAB 09:58
PROVIDERS: PCP Emergency Medicine; Visit Provider Nurse Practitioner Family
DX: E87.5 Hyperkalemia (principal)
CPT/HCPCS: 36415; 80048

== ENCOUNTER 2025-05-14 08:23 | Outpatient (CLI) | payer MEDICARE, MEDICAID, SELFPAY ==
--- OUTSIDE RECORDS SUMMARY | 2025-05-14 08:27 | XMS_ITS | Clinical Summary ---
Author Organization [facility] Address [address] [place] [address] Care Team Providers Care Soda Fountain Clerk Name Role Phone Francine Duque MD Primary Care Provider [phone] Allergies Active Allergy Reactions Criticality Noted Date [...] COVID-19 Vaccine ( - season) 2025 Insurance [place] MEDICARE ADVANTAGE [facility] HMO Care Teams Soda Fountain Clerk Relationship Specialty Start Date End Date Francine Duque MD [address] [facility] [address] [place] [address] PCP - General Family Medicine 05/02/16
--- OUTSIDE RECORDS SUMMARY | 2025-05-14 08:27 | XMS_ITS | Clinical Summary ---
Author Organization Healthcare Address [address] [place] [address] Care Team Providers Care Feedmobile Driver Name Role Phone Carol Maza MD Primary [...] 2008 UKY-Zoster Vaccines (1 of 2) 2008 JYN-EMEXL-56 Vaccine ( - 20 24-25 season) 2025 [...] Narrative SUNQUEST - 11/28/1996 12:00 AM EDT [facility] MR #: [id number] [facility] [address] [place], [place] [id number] 1960 (Age: 36) FW Collect Date: 11/19/1996 00:00 Receipt Date: 11/20/1996 00:00 Page 1 DEPARTMENT OF PATHOLOGY AND LABORATORY MEDICINE CYTOPATHOLOGY REPORT Email: [phone] * Converted Case * This report may [...] results is suggested (please call Microbiology at [phone] for results). CLINICAL INFORMATION: Menstrual History: {Not Provided} Date of Last Menstrual Period: {Not Provided} SPECIMEN DESCRIPTION: A: CERVICAL/VAGINAL SMEAR, PAP ICD: F: {Not Entered} SNOMED CODES: 1; B7W873 H76090 L62456 In cases where a pathologist has signed out the report, the service has been rendered in part by a resident. The signing pathologist has performed and is responsible for the reported pathologic evaluation. us Historical Provider LAB PATHOLOGY ORDERABLES Fin al Result SUNQUEST from Last 3 Months or Most Recently Relevant to Health Maintenance Insurance Care Teams Feedmobile Driver Relationship Specialty Start Date End Date Carol Maza MD [address] [place] [address] [address] [place] [address] PCP - General 12/11/20
[2025-05-14 09:45] LABS: Chloride 106 mmol/L (98-107); Potassium 5.9 mmoL/L (3.5-5.1); Sodium 139 mmol/L (136-145)
[2025-05-14 09:48] LABS: Anion Gap 9.9 mEq/L (5-15); Blood Urea Nitrogen 32 mg/dl (7-17); Calcium 8.7 mg/dl (8.4-10.2); Carbon Dioxide 29 mmol/L (22.0-30.0); Creatinine,Serum 1.80 mg/dl (0.52-1.04); Estimated Glomerular Filt Rate 28 ml/min (>60); GFR (African American) 34 ML/MIN (>60); Glucose 154 mg/dl (74-100)
== END 2025-05-14 23:59 | disposition home or self-care (01) ==
LOC: LAB 08:24
PROVIDERS: PCP Emergency Medicine; Visit Provider Nurse Practitioner Family
DX: N17.9 Acute kidney failure, unspecified (principal); E87.5 Hyperkalemia
CPT/HCPCS: 36415; 80048

== ENCOUNTER 2025-06-04 10:01 | Outpatient (CLI) | payer MEDICARE, MEDICAID, SELFPAY ==
--- OUTSIDE RECORDS SUMMARY | 2025-06-04 10:10 | XMS_ITS | Clinical Summary ---
Author Organization [facility] Address [address] [place] [address] Care Team Providers Care Nipple Maker Name Role Phone Francine Duque MD Primary Care Provider [phone] Allergies Active Allergy Reactions Criticality Noted Date [...] COVID-19 Vaccine ( - season) 2025 Insurance [facility] MEDICARE ADVANTAGE [facility] HMO Care Teams Nipple Maker Relationship Specialty Start Date End Date Francine Duque MD [address] [facility] [address] [place] [address] PCP - General Family Medicine 05/02/16
--- OUTSIDE RECORDS SUMMARY | 2025-06-04 10:10 | XMS_ITS | Data Portability ---
Author Organization [place] - [facility] - [facility] ADMIN Address [address] [place] [id number] Care Team Providers Care Mba Intern Name Role Phone KAIDEN MIRANDA Primary Care Provider Assessment Encounter Date Assessment Date Assessment LastModified by Organization Details LastModified Time 05/05/2025 05/05/2025 we have spent 25 minutes discussing pts blood pressure management bsokan Not available 05/05/2025 15:02:21 Plan of Treatment Reminders Order Date Submit Date Provider Last Modified By Organization Details Last Modified Time Details Appointments PROC 30 2025 09:00A Pepe Bonner M.D Not available Not available Not available Lab noninvasi ve colorecta l cancer DNA + occult blood screening , QL, stool 2024 025 [facility], [address], [address], [place], [address], 06/02/2025 11:58:43 urinalysi s complete, reflex culture [facility] [address] [place], [address], 05/12/2025 08:02:02 HbA1c (hemoglob in A1c), blood 2024 025 [facility] (Laboratory), [place], [address], 09/11/2024 17:07:32 CMP, serum or plasma 2024 025 [facility] (Laboratory), [address] [place], [address], 09/11/2024 17:35:52 CBC w/ auto diff 2024 025 [facility] (Laboratory), [address] [place], [address], 09/11/2024 16:44:51 TSH + free T4, serum 2024 025 [facility] (Laboratory), [address] [place], [address], 09/18/2024 10:26:23 lipid panel, serum 2024 025 [facility] (Laboratory), [address] [place], [address], 09/11/2024 17:35:55 Referral dermatolo gist referral 2024 [facility], [address] [place] [address], [place], [address], 06/02/2025 12:04:12 gastroent erology surgery referral 2024 [facility], [address] [facility], [address], [place], [address], 06/02/2025 11:47:14 otolaryng ologist referral - referral per patient request. 2024 025 jayda Perla MD, [address] [place], [address], 01/14/2025 11:34:32 Procedures None recorded. Surgeries None recorded. Imaging bone density 2024 025 [facility] (Scheduling), [address] [place], [address], 06/02/2025 11:44:04 MAMMO, screening , digital, bilateral 2024 025 [facility] (Scheduling), [address] [place], [address], 06/02/2025 11:44:08 Medication Orders Macrobid 100 mg capsule 2024 025 [facility]/Pharmacy #[id number], [address] [place], [address], 06/02/2025 11:45:16 Patient TargetsNo targets recorded. Patient InstructionsNo instructions recorded. 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 Referring Physician: Kaiden Miranda [facility], Encounter Date: 11/12/2024 Gastroenterology Surgery Ref erral for Screening for malignant neoplasm of colon Screening Colonoscopy Referring Physician: Kaiden Miranda 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, Encounter Date: 06/02/2025 Results Created Date Observation Date Name Description Value Unit Range Abnormal Flag Note LastModifiedBy Organization Detail LastModifiedTime 09/11/1909/11/2024 CBC AUTO W DIFF WBC 7.7 10 4.5-11 .5 Not Available [facility] (Lab Registration) [address] [place], [address], 09/11/2024 16:44:51 09/11/19 25 09/11/2024 CBC AUTO W DIFF RBC 3.92 10 4.25-5 .57 low Not Available [facility] (Lab Registration) [place], [address], 09/11/2024 16:44:51 09/11/19 25 09/11/2024 CBC AUTO W DIFF HGB 10.9 g/dL 12.0-1 5.7 low Not Available [facility] (Lab Registration) [place], [address], 09/11/2024 16:44:51 09/11/19 25 09/11/2024 CBC AUTO W DIFF HCT 34.6 % 36.0-4 7.0 low Not Available [facility] (Lab Registration) [address] [place], [address], 09/11/2024 16:44:51 09/11/19 25 09/11/2024 CBC AUTO W DIFF MCV 88.3 fL 80-95 Not Available [facility] (Lab Registration) [address] [place], [address], 09/11/2024 16:44:51 09/11/19 25 09/11/2024 CBC AUTO W DIFF MCH 27.8 pg 27.0-3 4.0 Not Available [facility] (Lab Registration) [address] [place], [address], 09/11/2024 16:44:51 09/11/19 25 09/11/2024 CBC AUTO W DIFF MCHC 31.5 g/dL 32.0-3 6.0 low Not Available [facility] (Lab Registration) [address] [place], [address], 09/11/2024 16:44:51 09/11/19 25 09/11/2024 CBC AUTO W DIFF platelet count 258 10 150-45 0 Not Available [facility] (Lab Registration) [address] [place], [address], 09/11/2024 16:44:51 09/11/19 25 09/11/2024 CBC AUTO W DIFF RDW 14.3 % 12.3-1 5.1 Not Available [facility] (Lab Registration) [address] [place], [address], 09/11/2024 16:44:51 09/11/19 25 09/11/2024 CBC AUTO W DIFF MPV 11.5 fL 7.4-10 .4 high Not Available [facility] (Lab Registration) [address] [place], [address], 09/11/2024 16:44:51 09/11/19 25 09/11/2024 CBC AUTO W DIFF granulocyte% 56.7 % 40-75 Not Available [facility] (Lab Registration) [address] [place], [address], 09/11/2024 16:44:51 09/11/19 25 09/11/2024 CBC AUTO W DIFF lymphocyte% 33.9 % 15-57 Not Available [facility] (Lab Registration) [address] [place], [address], 09/11/2024 16:44:51 09/11/19 25 09/11/2024 CBC AUTO W DIFF monocyte% 6.9 % 4.0-12 .0 Not Available [facility] (Lab Registration) [address] [place], [address], 09/11/2024 16:44:51 09/11/19 25 09/11/2024 CBC AUTO W DIFF eosinophil% 1.8 % 0.0-4. 0 Not Available [facility] (Lab Registration) [address] [place], [address], 09/11/2024 16:44:51 09/11/19 25 09/11/2024 CBC AUTO W DIFF basophil% 0.4 % 0.0-1. 0 Not Available [facility] (Lab Registration) [address] [place], [address], 09/11/2024 16:44:51 09/11/19 25 09/11/2024 CBC AUTO W DIFF immature granulocytes % 0.3 % 0.0-0. 8 Not Available [facility] (Lab Registration) [address] [place], [address], 09/11/2024 16:44:51 09/11/19 25 09/11/2024 CBC AUTO W DIFF granulocyte# 4.39 10 Not Available [facility] (Lab Registration) [address] [place], [address], 09/11/2024 16:44:51 09/11/19 25 09/11/2024 CBC AUTO W DIFF lymphocyte# 2.62 10 Not Available [facility] (Lab Registration) [address], [place], [address], 09/11/2024 16:44:51 09/11/19 25 09/11/2024 CBC AUTO W DIFF monocyte# 0.53 10 Not Available [facility] (Lab Registration) [address] [place], [address], 09/11/2024 16:44:51 09/11/19 25 09/11/2024 CBC AUTO W DIFF eosinophil# 0.14 10 Not Available [facility] (Lab Registration) [address] [place] [place], [address], 09/11/2024 16:44:51 09/11/19 25 09/11/2024 CBC AUTO W DIFF basophil# 0.03 10 Not Available [facility] (Lab Registration) [address] [place] [place], [address], 09/11/2024 16:44:51 09/11/19 25 09/11/2024 CBC AUTO W DIFF immature granulocytes # 0.02 10 Not Available [facility] (Lab Registration) [address] [place], [address], 09/11/2024 16:44:51 09/11/19 25 09/11/2024 CBC AUTO W DIFF manual differential NO Not Available [facility] (Lab Registration) [address] [place], [address], 09/11/2024 16:44:51 09/11/19 25 09/11/2024 CBC AUTO W DIFF note Unles s other vigil noted testi ng perfo rmed at: [facility] [address] [place] [address] [phone] Dante maier MD CLIA: [id number] Not Available [facility] (Lab Registration) [address], [place], [address], 09/11/2024 16:44:51 09/11/19 25 09/11/2024 HEMOG LOBIN A1C glycosylated hemoglobin A1C 7.2 % 4.5-6. 2 high Not Available [facility] (Lab Registration) [address] [place], [address], 09/11/2024 17:07:32 09/11/19 25 09/11/2024 HEMOG LOBIN A1C estimated average glucose 160 mg/dL 82-131 high Not Available [facility] (Lab Registration) [address] [place], [address], 09/11/2024 17:07:32 09/11/19 25 09/11/2024 HEMOG LOBIN A1C note Kwadwo herrera vigil noted testi ng perfo rmed at: [facility] [address] [place] [address] [phone] Dante maier MD CLIA: [id number] Not Available [facility] (Lab Registration) [address] [place], [address], 09/11/2024 17:07:32 09/11/19 25 09/11/2024 THYRO ID STIMU LATIN G HORMO NE thyroid stimulating hormone 2.75 mIU/m L 0.34-4 .80 Not Available [facility] (Lab Registration) [address] [place], [address], 09/11/2024 17:35:51 09/11/19 25 09/11/2024 THYRO ID STIMU LATIN G HORMO NE note Kwadwo vigil noted testi ng perfo rmed at: [facility] [address] [place] [address] [phone] Dante maier MD CLIA: [id number] Not Available [facility] (Lab Registration) [address] [place], [address], 09/11/2024 17:35:51 09/11/19 25 09/11/2024 COMP METAB OLIC PANEL sodium 141 mmol/ L 136-14 5 Not Available [facility] (Lab Registration) [address] [place], [address], 09/11/2024 17:35:52 09/11/19 25 09/11/2024 COMP METAB OLIC PANEL potassium 5.0 mmol/ L 3.5-5. 1 Not Available [facility] (Lab Registration) [address] [place], [address], 09/11/2024 17:35:52 09/11/19 25 09/11/2024 COMP METAB OLIC PANEL chloride 105 mmol/ L 98-107 Not Available [facility] (Lab Registration) [address] [place], [address], 09/11/2024 17:35:52 09/11/19 25 09/11/2024 COMP METAB OLIC PANEL carbon dioxide 31 mmol/ L 21-32 Not Available [facility] (Lab Registration) [address] [place], [address], 09/11/2024 17:35:52 09/11/19 25 09/11/2024 COMP METAB OLIC PANEL anion gap 5.0 Not Available [facility] (Lab Registration) [address] [place], [address], 09/11/2024 17:35:52 09/11/19 25 09/11/2024 COMP METAB OLIC PANEL glucose 143 mg/dL 70-110 high Not Available [facility] (Lab Registration) [address] [place], [address], 09/11/2024 17:35:52 09/11/19 25 09/11/2024 COMP METAB OLIC PANEL blood urea nitrogen 25 mg/dL 7-18 high Not Available [facility] (Lab Registration) [address] [place], [address], 09/11/2024 17:35:52 09/11/19 25 09/11/2024 COMP METAB OLIC PANEL creatinine 1.5 mg/dL 0.6-1. 0 high Not Available [facility] (Lab Registration) [address], [place], [address], 09/11/2024 17:35:52 09/11/19 25 09/11/2024 COMP METAB OLIC PANEL BUN/creatini ne ratio 16.7 9-21 Not Available [facility] (Lab Registration) [address] [place], [address], 09/11/2024 17:35:52 09/11/19 25 09/11/2024 COMP METAB OLIC PANEL estimated glom filtration rate 38 mL/mi n >60- low GFR LIMIT ATION : The eGFR equat ion CKD-E PI 2020 is not appli cable for pedia tric patie nts or great er than 90 years of age. The follo wing condi tions may alter the GFR resul t: extre mes in body size, malnu triti on or obesi ty, skele jose muscl e disea se, parap legia or quadr ipleg ia, veget varsha diet or rapid ly gillespie ing kiney funct ion. Not Available [facility] (Lab Registration) [address] [place], [address], 09/11/2024 17:35:52 09/11/19 25 09/11/2024 COMP METAB OLIC PANEL total protein 6.2 g/dL 6.4-8. 2 low Not Available [facility] (Lab Registration) [address] [place], [address], 09/11/2024 17:35:52 09/11/19 25 09/11/2024 COMP METAB OLIC PANEL albumin 2.7 g/dL 3.4-5. 0 low Not Available [facility] (Lab Registration) [address] [place], [address], 09/11/2024 17:35:52 09/11/19 25 09/11/2024 COMP METAB OLIC PANEL calcium 9.2 mg/dL 8.5-10 .1 Not Available [facility] (Lab Registration) [address], [place], [address], 09/11/2024 17:35:52 09/11/19 25 09/11/2024 COMP METAB OLIC PANEL corrected calcium 10.2 mg/dL 8.5-10 .1 high Not Available [facility] (Lab Registration) [address], [place], [address], 09/11/2024 17:35:52 09/11/19 25 09/11/2024 COMP METAB OLIC PANEL bilirubin total 0.2 mg/dL 0.4-1. 5 low Not Available [facility] (Lab Registration) [address], [place], [address], 09/11/2024 17:35:52 09/11/19 25 09/11/2024 COMP METAB OLIC PANEL AST (SGOT) 16 U/L 15-37 Not Available [facility] (Lab Registration) [address], [place], [address], 09/11/2024 17:35:52 09/11/19 25 09/11/2024 COMP METAB OLIC PANEL ALT (SGPT) 19 U/L 12-78 Not Available [facility] (Lab Registration) [address] [place], [address], 09/11/2024 17:35:52 09/11/19 25 09/11/2024 COMP METAB OLIC PANEL alk phosphatase 75 U/L 53-141 Not Available [facility] (Lab Registration) [address] [place], [address], 09/11/2024 17:35:52 09/11/19 25 09/11/2024 COMP METAB OLIC PANEL note Unles s other vigil noted testi ng perfo rmed at: [facility] [address] [place] [address] [phone] Dante maier MD CLIA: [id number] Not Available [facility] (Lab Registration) [address] [place] [place], [address], 09/11/2024 17:35:52 09/11/19 25 09/11/2024 LIPID PANEL triglyceride 391 mg/dL 20-200 high The Natio nal Maxine stero l Educa tion Progr am (NCEP ) has set the follo wing guide lines for Fasti ng Trigl yceri jeannine: LEELA L: <150 mg/dL BORDE RLINE HIGH: 150 - 199 mg/dL HIGH: 200 - 499 mg/dL VERY HIGH: > or =500 mg/dL Not Available [facility] (Lab Registration) [address] [place], [address], 09/11/2024 17:35:55 09/11/19 25 09/11/2024 LIPID PANEL cholesterol 269 mg/dL 0-200 high The Natio nal Maxine stero l Educa tion Progr am (NCEP ) has set the follo wing guide lines for Fasti ng Maxine stero l: RASHMI ABLE: <200 mg/dL BORDE RLINE HIGH: 200 - 239 mg/dL HIGH: > or =240 mg/dL Not Available [facility] (Lab Registration) [address] [place], [address], 09/11/2024 17:35:55 09/11/19 25 09/11/2024 LIPID PANEL HDL cholesterol 42 mg/dL 60- low The Natio nal Maxine stero l Educa tion Progr am (NCEP ) has set the follo wing guide lines for Fasti ng HDL Maxine stero l: LOW HDL: <40 mg/dL LEELA L: 40 - 60 mg/dL RASHMI ABLE: >60 mg/dL Not Available [facility] (Lab Registration) [address] [place], [address], 09/11/2024 17:35:55 09/11/19 25 09/11/2024 LIPID PANEL LDL calculated 149 mg/dL 100- The Natio nal Maxine stero l Educa tion Progr am (NCEP ) has set the follo wing guide lines for Fasti ng LDL Maxine stero l: OPTIM AL: < 100 mg/dL LOW RISK: 100 - 129 mg/dL BORDE RLINE HIGH: 130 - 159 mg/dL HIGH: 160 - 189 mg/dL VERY HIGH: > or = 190 mg/dL Not Available [facility] (Lab Registration) [address], [place], [address], 09/11/2024 17:35:55 09/11/19 25 09/11/2024 LIPID PANEL chol/HDL ratio 6 -5 high Not Available [facility] (Lab Registration) [address] [place], [address], 09/11/2024 17:35:55 09/11/19 25 09/11/2024 LIPID PANEL note Unles s other vigil noted testi ng perfo rmed at: [facility] [address] [place] [phone] Dante maier MD CLIA: [id number] Not Available [facility] (Lab Registration) [address], [place], [address], 09/11/2024 17:35:55 09/11/19 25 09/11/2024 T4 FREE T4,free 1.04 NG/dL 0.76-1 .46 Effec tive today 013 new Refer ence Range . Not Available [facility] (Lab Registration) [address] [place], [address], 09/11/2024 17:49:51 09/11/19 25 09/11/2024 T4 FREE note Unles s other vigil noted testi ng perfo rmed at: [facility] [address] [place] [address] [phone] Dante maier MD CLIA: [id number] Not Available [facility] (Lab Registration) [address] [place], [address], 09/11/2024 17:49:51 05/05/2005/05/2025 UA AND MICRO /CULT IF INDIC ATED color yellow yellow Not Available [facility] (Lab Registration) [address], [place], [address], 05/05/2025 16:49:17 05/05/2005/05/2025 UA AND MICRO /CULT IF INDIC ATED appearance SL.HAZ Y clear Not Available [facility] (Lab Registration) [address] [place], [address], 05/05/2025 16:49:17 05/05/2005/05/2025 UA AND MICRO /CULT IF INDIC ATED glucose 250 normal Not Available [facility] (Lab Registration) [address] [place], [address], 05/05/2025 16:49:17 05/05/2005/05/2025 UA AND MICRO /CULT IF INDIC ATED bilirubin NEGATI VE negati ve Not Available [facility] (Lab Registration) [address], [place], [address], 05/05/2025 16:49:17 05/05/2005/05/2025 UA AND MICRO /CULT IF INDIC ATED ketone NEGATI VE mg/dL negati ve Not Available [facility] (Lab Registration) [address] [place], [address], 05/05/2025 16:49:17 05/05/2005/05/2025 UA AND MICRO /CULT IF INDIC ATED specific gravity 1.020 1.005- 1.035 Not Available [facility] (Lab Registration) [address] [place], [address], 05/05/2025 16:49:17 05/05/20 25 05/05/2025 UA AND MICRO /CULT IF INDIC ATED blood 25 (1+) /mcL negati ve Not Available [facility] (Lab Registration) [address], [place], [address], 05/05/2025 16:49:17 05/05/2005/05/2025 UA AND MICRO /CULT IF INDIC ATED pH 5.00 5.0-7. 5 Not Available [facility] (Lab Registration) [address] [place], [address], 05/05/2025 16:49:17 05/05/20 25 05/05/2025 UA AND MICRO /CULT IF INDIC ATED protein 500 (3+) mg/dL negati ve Not Available [facility] (Lab Registration) [address], [place], [address], 05/05/2025 16:49:17 05/05/20 25 05/05/2025 UA AND MICRO /CULT IF INDIC ATED urobilnogen NORM mg/dL normal Not Available [facility] (Lab Registration) [address] [place], [address], 05/05/2025 16:49:17 05/05/20 25 05/05/2025 UA AND MICRO /CULT IF INDIC ATED nitrite POSITI VE negati ve delta Not Available [facility] (Lab Registration) [address] [place], [address], 05/05/2025 16:49:17 05/05/20 25 05/05/2025 UA AND MICRO /CULT IF INDIC ATED leukocyte esterase 100 (1+) /mcL negati ve Not Available [facility] (Lab Registration) [address] [place], [address], 05/05/2025 16:49:17 05/05/2005/05/2025 UA AND MICRO /CULT IF INDIC ATED culture? CONTAM INATED delta Not Available [facility] (Lab Registration) [address] [place], [address], 05/05/2025 16:49:17 05/05/20 25 05/05/2025 UA AND MICRO /CULT IF INDIC ATED urine microscopic YES Not Available [facility] (Lab Registration) [address], [place], [address], 05/05/2025 16:49:17 05/05/20 25 05/05/2025 UA AND MICRO /CULT IF INDIC ATED RBC 5-10 0-3 Not Available [facility] (Lab Registration) [address], [place], [address], 05/05/2025 16:49:17 05/05/20 25 05/05/2025 UA AND MICRO /CULT IF INDIC ATED WBC >30 none seen delta Not Available [facility] (Lab Registration) [address], [place], [address], 05/05/2025 16:49:17 05/05/2005/05/2025 UA AND MICRO /CULT IF INDIC ATED epithelial cell >30 none seen delta Not Available [facility] (Lab Registration) [address], [place], [address], 05/05/2025 16:49:17 05/05/2005/05/2025 UA AND MICRO /CULT IF INDIC ATED bacteria 1+ none seen Not Available [facility] (Lab Registration) [address] [place], [address], 05/05/2025 16:49:17 05/05/2005/05/2025 UA AND MICRO /CULT IF INDIC ATED mucus TRACE none seen Not Available [facility] (Lab Registration) [address] [place], [address], 05/05/2025 16:49:17 05/05/2005/05/2025 UA AND MICRO /CULT IF INDIC ATED note Unles s other vigil noted testi ng perfo rmed at: [facility] [address] [place] [address] [phone] Dante maier MD CLIA: [id number] Not Available [facility] (Lab Registration) [address] [place] , [place], [address], 05/05/2025 16:49:17 04/10/2004/10/2025 imagi ng inter preta tion No observ ation record ed. [email or web address] [facility] [address], [place], [address], 04/10/2025 14:53:33 04/20/2004/10/2025 imagi ng inter preta tion No observ ation record ed. [email or web address] [facility] [address], [place], [address], 04/21/2025 08:07:15 Result Notes None recorded. Problems Name Problem SNOMED Code Status Onset Date Resolution Date Notes Provider Name and Address Organization Details Recorded Time Essential hypertensio n 49828764 Active 2024 Colleen Paizi null, [place] - [facility] & [place] 5 14:57:19 Hyperlipide chad 74223969 Active 2024 Colleen Izabeli null, [place] - [facility] - [place] & [place] 5 14:57:25 Type 2 diabetes mellitus 91693886 Active 2024 Colleen Shekhardini null, [place] - [facility] - [place] & [place] 5 14:57:32 History of pneumonia 353760137 Active 2024 Colleen Shekhardini null, [place] - [facility] - [place] & [place] 5 14:59:13 History of sepsis 3710775506102 00 Active 2024 Colleen Shekhardini null, [place] - [facility] - [place] & [place] 5 14:59:48 Problem Notes None recorded. 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 Procedure Notes None recorded. Medical Equipment None Reported. Allergies Allergen ID Allergen Name Allergen Category Reaction Reaction Severity Criticality Documentation Date Start Date Code Code System Note Provider Name and Address Organization Details Recorded Time 717590 prednison e medicatio n other moderate Not available 11/08/2024 8640 RxNorm JITTE RY--- okay at lower doses Erika ramírez, [place] - [place] - [place] & [place] 10:38:58 Medications Name Sig Start Date Stop Date Status Note LastModified by Organization Details LastModified Time atorvastati n 40 mg tablet TAKE 1 TABLET BY MOUTH EVERY DAY 2024 active Not Available Not Available Not Avai lable carvedilol 25 mg tablet TAKE 1 TABLET BY MOUTH TWICE A DAY GIVE WITH FOOD (MEAL/SNA CK) 11/12 completed Not Available Not Available Not Available clonidine HCl 0.1 mg tablet TAKE 1 TABLET EVERY 6 TO 8 HOURS NEEDED IF SYSTOLIC BLOOD PRESSURE IS >160 05/05 completed Not Available Not Available Not Available cefuroxime axetil 250 mg tablet TAKE 1 TABLET BY MOUTH TWICE A DAY 11/12 completed Not Available Not Available Not Available carvedilol 12.5 mg tablet TAKE 1 TABLET ORALLY TWICE A DAY MUST ADMINISTE R WITH A MEAL/FOOD 11/12 completed Not Available Not Available Not Available atorvastati n 10 mg tablet Take 1 tablet every day by oral route as directed. 09/12 completed Not Available Not Available Not Available metoprolol succinate ER 50 mg tablet,exte nded release 24 hr TAKE 1 TABLET BY MOUTH EVERY DAY active Not Available Not Available No t Available meloxicam 15 mg tablet TAKE 1 TABLET BY MOUTH EVERY DAY 11/12 completed Not Available Not Available Not Available metoprolol succinate ER 100 mg tablet,exte nded release 24 hr TAKE 1 TABLETS ORALLY DAILY FOR 30 DAYS active Not Available Not Available No t Available Accu-Chek Softclix Lancets USE TO TEST 3 TIMES A DAY active Not Available Not Available No t Available amlodipine 5 mg tablet TAKE ONE TABLET BY MOUTH ONCE DAILY 05/05 completed Not Available Not Available Not Available spironolact one 25 mg tablet TAKE 1 TABLET BY MOUTH EVERY DAY 06/02 completed Not Available Not Available Not Available amlodipine 10 mg tablet TAKE 1 TABLET BY MOUTH EVERY DAY 06/02 completed Not Available Not Available Not Available diltiazem CD 120 mg capsule,ext ended release 24 hr TAKE 1 CAPSULE BY MOUTH EVERY DAY 11/12 completed Not Available Not Available Not Available hydrochloro thiazide 25 mg tablet TAKE 1 TABLET (25 MG) BY MOUTH DAILY 05/05 completed Not Available Not Available Not Available furosemide 20 mg tablet TAKE 1 TABLET BY MOUTH EVERY DAY active Not Available Not Available No t Available irbesartan 150 mg tablet TAKE 1 TABLET (150 MG) BY MOUTH TWICE A DAY active Not Available Not Available No t Available losartan 100 mg tablet Take 1 tablet every day by oral route as directed for 90 days. 05/05 completed Not Available Not Available Not Available azithromyci n 500 mg tablet TAKE 1 TABLET BY MOUTH EVERY DAY 11/12 completed Not Available Not Available Not Available metformin ER 750 mg tablet,exte nded release 24 hr TAKE 1 TABLET BY MOUTH TWICE A DAY active Not Available Not Available No t Available nitrofurant oin monohydrate /macrocryst als 100 mg capsule TAKE 1 CAPSULE BY MOUTH EVERY 12 HOURS 06/02 completed Not Available Not Available Not Available losartan 100 mg-hydrochl orothiazide 12.5 mg tablet TAKE 1 TABLET BY MOUTH EVERY DAY 11/12 completed Not Available Not Available Not Available hydrochloro thiazide 12.5 mg tablet TAKE 1 TABLET BY MOUTH DAILY 11/12 completed Not Available Not Available Not Available Accu-Chek Guide test strips 3 TIMES A DAY active Not Available Not Available No t Available Lokelma 5 gram oral powder packet 5 G ORALLY DAILY active Not Available Not Available No t Available Accu-Chek Guide Me Glucose Meter 1 (ONE) KIT DIRECTED active Not Available Not Available No t Available Vitals Date Recorded Body height Body mass index (BMI) Body weight Body temperature Oxygen saturation Oxygen saturation in Arterial blood by Pulse oximetry Heart rate Respiratory rate Systolic And Diastolic Provider Name and Address Organization Details Last Updated DateTime 5 157.48 cm 28.9 kg/m2 44030.8 8 g 97.3 [degF] 98 % 98 % 72 /min 14 /min 158/79 mm[Hg] Colleen Charles [place] - [facility] 5 14:54:48 Date Recorded Body height Body mass index (BMI) Body weight Body temperature Oxygen saturation Oxygen saturation in Arterial blood by Pulse oximetry Heart rate Respiratory rate Systolic And Diastolic Provider Name and Address Organization Details Last Updated DateTime 5 157.48 cm 29.3 kg/m2 37441.5 g 97.5 [degF] 98 % 98 % 96 /min 16 /min 158/87 mm[Hg] Colleen ROBERTS [facility] & [place] 5 08:38:42 Date Recorded Body height Body mass index (BMI) Body weight Body temperature Oxygen saturation Oxygen saturation in Arterial blood by Pulse oximetry Heart rate Respiratory rate Systolic And Diastolic Provider Name and Address Organization Details Last Updated DateTime 5 157.48 cm 30.5 kg/m2 77556.9 3 g 97.5 [degF] 99 % 99 % 85 /min 14 /min 189/89 mm[Hg] Colleen ROBERTS [facility] & [place] 5 14:34:48 Date Recorded Body height Body mass index (BMI) Body weight Body temperature Oxygen saturation Oxygen saturation in Arterial blood by Pulse oximetry Heart rate Respiratory rate Systolic And Diastolic Provider Name and Address Organization Details Last Updated DateTime 5 157.48 cm 31.8 kg/m2 09736.6 4 g 98.2 [degF] 97 % 97 % 82 /min 14 /min 189/85 mm[Hg] Colleen ROBERTS [facility] & [place] 5 11:44:12 Social History Question Answer Notes LastModified by Organizat ion Details LastModified Time Tobacco Smoking Status Never Smoker Colleen ramírez [place]O [facility] & [place] 09/11/2024 14:57:52 Do You Have An Advance Directive? No Information n ot available 09/11/2024 Do You Wear A Helmet When Biking? Yes Information not available 09/11/2024 Are You Blind Or Do You Have Difficulty Seeing? No Information n ot available 09/11/2024 What Is Your Level Of Caffeine Consumption? Occasional Information not available 09/11/2024 In The 14 Days Before Symptom Onset, Have You Had Close Contact With A Laboratory-confirm ed COVID-19 While That Case Was Ill? No Information n ot available 09/11/2024 In The 14 Days Before Symptom Onset, Have You Had Close Contact With A Person Who Is Under Investigation For COVID-19 While That Person Was Ill? No Information not available 09/11/2024 Have You Been To An Area Known To Be High Risk For COVID-19? No Information not available 09/11/2024 Are You Deaf Or Do You Have Serious Difficulty Hearing? No Information not available 09/11/2024 What Type Of Diet Are You Following? REGULAR Information n ot available 09/11/2024 Have You Processed Blood Or Body Fluids From An Ebola Virus Disease Patient Without Appropriate PPE? No Information not available 09/11/2024 Do You Reside In Or Have You Traveled To An Area Where Ebola Virus Transmission Is Active? No Information not available 09/11/2024 Have There Been Any Changes To Your Family Or Social Situation? No Information no t available 09/11/2024 What Is The Fluoride Status Of Your Home? Unknown Information not available 09/11/2024 Are There Any Guns Present In Your Home? No Information not available 09/11/2024 Have You Recently Or Are You Planning To Travel To An Area With Zika Virus? No Information not available 09/11/2024 Do You Use Insect Repellent Routinely? Yes Information not available 09/11/2024 Do You Feel Safe At Home? Yes Information not available 09/11/2024 Do You Have Any Pets? Yes Information not available 09/11/2024 Do You Use Your Seat Belt Or Car Seat Routinely? Yes Information not available 09/11/2024 Do You Have Smoke And Carbon Monoxide Detectors In Your Home? Yes Information not available 09/11/2024 Are You Passively Exposed To Smoke? No Information no t available 09/11/2024 Do You Use Sunscreen Routinely? Yes Information not available 09/11/2024 Has Tobacco Cessation Counseling Been Provided? No Information not available 09/11/2024 Do You Have Difficulty Walking Or Climbing Stairs? No Information not available 09/11/2024 Are You Currently In School? No Information not available 09/11/2024 Sex: Female Functional Status Question Answer Note LastModified by [employer] Details LastModified Time Do you use any illicit or recreational drugs? No Information not available 09/11/2024 Do you or have you ever used any other forms of tobacco or nicotine? No Information not available 09/11/2024 Are you currently employed? No Information not available 09/11/2024 Do you have transportation difficulties? No Information not available 09/11/2024 Are you able to walk independently without assistance or assistive devices? YESWOREST Information not available 09/11/2024 Do you have difficulty doing errands alone? No Information not available 09/11/2024 Are you able to care for yourself independently? Yes Information not available 09/11/2024 Do you have difficulty dressing, bathing, grooming, or toileting? No Information not available 09/11/2024 Mental Status Question Answer Note LastModified by [employer] Details LastModified Time Do you feel stressed (tense, restless, nervous, or anxious, or unable to sleep at night)? [id number] Information not available 09/11/2024 Do you have difficulty concentrating, remembering or making decisions? No Information no t available 09/11/2024 Family History Relationship Description Onset Age of this Age Resolved Age Notes LastModified by Organization Details LastModified Time Father Heart disease CHART_MERGE Not available 09/2024 11:57:59 Father Hypertensive disorder CHART_MERGE Not available 09/2024 11:57:59 Mother Hypertensive disorder CHART_MERGE Not available 09/2024 11:57:59 Mother Heart disease CHART_MERGE Not available 09/2024 11:57:59 Unspecified Relation Malignant neoplastic disease Ananda g CHART_MERGE Not available 06/02/2025 11:57:59 Medical History Condition Response Diabetes Y Obesity Y Vision or Eye Problems Y Hypertension Y High Cholesterol Y Gynecological HistoryNo gynecological history recorded. Obstetrics History GPAL:G 0 P 0 0 0 0 Immunizations Vaccine Type Date Status Note Provider Jay weathers and Address Organization Details Recorded Time Influenza, MDCK, quadrivalent, PF 04/26/2021 completed Colleen Pardini null, [place] - [facility] - [place] & [place] 05/05/2025 14:35:26 Influenza, MDCK, quadrivalent, PF 04/26/2022 completed Colleen Pardini null[place] [facility] [place] & [place] 05/05/2025 14:35:26 Hep B, adult 10/31/2001 completed Colleen Pardi ni null, [place] - [facility] - [place] & [place] 09/11/2024 14:55:07 Hep B, adult 05/03/2001 completed Colleen Pardi ni [place] - [facility] - [place] & [place] 09/11/2024 14:55:07 Hep B, adult 05/31/2001 completed Colleen Pardi ni [place] - [facility] - [place] & [place] 09/11/2024 14:55:07 Influenza, split virus, quadrivalent, PF 05/15/2020 completed Colleen Pardini null[place] [facility] - [place] & [place] 05/05/2025 14:35:26 Influenza, high-dose, trivalent, PF 05/05/2025 completed Not Available [facility] 2024 11:39:57 Past Encounters Encounter ID Performer Location Encounter Start Date Encounter Closed Date Diagnosis/Indication Diagnosis SNOMED-CT Code Diagnosis ICD10 Code Diagnosis IMO Codes Diagnosis Note [id number] Kaiden Miranda MD [facility] [address] [place] [id number] 09/11/2024 14:20:16 09/11/2024 15:11:20 Patient new to provider [id number] 26146 Z76.89 this is a new patient who presents to [facility]. She has multiple medical issues. Essential hypertension 44477672 I10 Blood pressure is somewhat elevated. Patient is currently on losartan / HCTZ as well as carvedilol . Hyperlipidemia 14291555 E78.5 Stable Type 2 gwyn betes mellitus 91974646 E11.9 stable [id number] Kaiden Miranda MD [facility] [address] [facility] [place] [id number] 11/12/2024 08:28:08 11/12/2024 09:01:33 Vertigo 160574351 R42 [id number] Will refer patient to ENT per patient request. [id number] Kaiden Miranda MD [address] [place] [id number] 05/05/2025 14:24:00 05/05/2025 14:47:56 Increased frequency of urination 031499580 R35.0 19669 Will treat patient empiricall y. We might have to adjust antibiotic s once we get the results of culture. Essential hypertension 78992653 I10 [id number] patient has been advised to follow-up with the cardiologi st that is managing her blood pressure. I have told her that in the interim it will not hurt to restart her amlodipine . She states that the only reason why it was stopped because she had ankle swelling. I have suggested she take it at night. [id number] Kaiden Miranda MD [address] [place] [id number] 06/02/2025 11:33:45 06/02/2025 12:00:02 Screening mammography of bilateral breasts 2230660212 33482 Z12.31 Screening for osteoporosis 312048916 Z13.820 Screening for malignant neoplasm of colon 991694090 Z12.11 Blood pres sure outside reference range 50646403 I99.8 [id number] patient's blood pressure is being managed by her cardiologi st. It appears this stopped some of her medication s. She is hypertensi ve at this time. I have advised her to reach out to her cardiologi st in the next 24 hours to get an appointmen morales rivera she can go to the emergency department for further management . Cutaneous horn 707739416 L85.8 [id number] patient has a cutaneous horn to the right side of her forehead. Will refer [facility] for evaluation Health Concerns Section Related Observation LastModified by Organization Detai ls LastModified Time None Recorded Concern Status LastModified by Organization Details LastModified Time None Recorded Advance Directives Directive N: Payers Insurance Date Sequence Insurance Name Policy Number Policy Moore Covered Member ID Moore Member ID Guarantor Name 10/04/2024 1 [place] Mustapha Neal [id number] Mustapha Neal 10/04/2024 1 [employer] - [employer] (MEDICARE REPLACEMENT/A DVANTAGE - HMO) Mustapha Neal [id number] Mustapha Neal 05/31/2025 2 [place] [facility] - FFS/TRADITION [place] Mustapha Neal [id number] Mustapha Neal 05/31/2025 MED[place] [employer] - [facility] Mustapha Neal [id number] Mustapha Neal 05/31/2025 1 [employer] (MEDICARE REPLACEMENT/A DVANTAGE - HMO) Mustapha Neal [id number] Mustapha Neal Notes Date Note Type Note Provider Name and Address Organization Details Recorded Time 09/11/2024 text/html ROS as noted in the HPI this is a new patient who presents today to establish care. She was seen in the emergency department for symptoms suggestive of CVA with elevated blood pressure. Patient was treated in the emergency department at [facility] and referred to Dr. Avelar in [facility]. Patient was seen by her outreach and education social worker this morning. Her medications were changed somewhat. She is here to establish care. She denies any issues at this time Kaiden Miranda MD [address] [place] [address], [id number] [place] [address] 09/11/2024 15:30:12 11/12/2024 text/html ROS as noted in the HPI patient presents today requesting a referral to ENT secondary to chronic vertigo. She has requesting a referral to Dr. Perla, patient reports intermittent vertigo. Kaiden Miranda MD [address] [place] [address], [phone], [facility] & [place] 11/12/2024 09:32:50 05/05/2025 text/html ROS as noted in the HPI SDSpatient presents today complaining of a one-week history of urinary symptomspatient is also concerned about her blood pressure. She states that her blood pressure is elevated. She states that her outreach and education social worker has recently stopped her amlodipine, clonidine, hydrochlorothiazide, losartan, and spironolactone. She is currently controlling her blood pressure with irbesartan twice a day. She states that ever since she has made these changes her blood pressure has been elevated. Kaiden Miranda MD [address] [place] [address], [place], [phone], [facility] - [place] & [place] 05/05/2025 15:02:29 OBGyn Episode No OBEpisode recorded.
--- OUTSIDE RECORDS SUMMARY | 2025-06-04 10:11 | XMS_ITS | Continuity of Care Document ---
Author Organization [facility] Address [address] [place] [address] Care Team Providers Care Fitness Services Manager Name Role Phone KAIDEN MIRANDA Primary Care Provider Assessment No assessment recorded. Plan of Treatment Reminders Order Date Submit Date Provider Last Modified By Organization Details Last Modified Time Details Appointments PROC 2025 09:00A Pepe Bonner M.D Not available Not available Not available Lab noninvasi ve colorecta l cancer DNA + occult blood screening , QL, stool 2024 025 [facility], [address], [place], [address], 06/02/2025 11:58:43 Referral dermatolo gist referral 2024 025 [facility], [address] [place] [address], [place], [address], 06/02/2025 12:04:12 gastroent erology surgery referral 2024 025 [facility], [address], [address], [place], [address], 06/02/2025 11:47:14 Procedures None recorded. Surgeries None recorded. Imaging bone density 2024 025 [facility] ([facility]), [address] [place], [address], 06/02/2025 11:44:04 MAMMO, screening , digital, bilateral 2024 025 [facility] (Scheduling), [address], [place], [address], 06/02/2025 11:44:08 Medication Orders None recorded. Patient TargetsNo targets recorded. Patient InstructionsNo instructions recorded. Reason for Referral Gastroenterology Surgery Ref erral for Screening for malignant neoplasm of colon Screening Colonoscopy Referring Physician: Kaiden Miranda [facility], Encounter Date: 06/02/2025 Medical Educator Referral for C gem galindo Referring Physician: Kaiden Miranda [facility], Encounter Date: 06/02/2025 Results Created Date Observation Date Name Description Value Unit Range Abnormal Flag Note LastModifiedBy Organization Detail LastModifiedTime 05/05/2005/05/2025 UA AND MICRO /CULT IF INDIC ATED color yellow yellow Not Available [facility] (Lab Registration) [address], [place], [address], 05/05/2025 16:49:17 05/05/2005/05/2025 UA AND MICRO /CULT IF INDIC ATED appearance SL.HAZ Y clear Not Available [facility] (Lab Registration) [address] [place], [address], 05/05/2025 16:49:17 05/05/2005/05/2025 UA AND MICRO /CULT IF INDIC ATED glucose 250 normal Not Available [facility] (Lab Registration) [address] [place], [address], 05/05/2025 16:49:17 05/05/2005/05/2025 UA AND MICRO /CULT IF INDIC ATED bilirubin NEGATI VE negati ve Not Available [facility] (Lab Registration) [address] [place], [address], 05/05/2025 16:49:17 05/05/20 25 05/05/2025 UA AND MICRO /CULT IF INDIC ATED ketone NEGATI VE mg/dL negati ve Not Available [facility] (Lab Registration) [address] [place], [address], 05/05/2025 16:49:17 05/05/2005/05/2025 UA AND MICRO /CULT IF INDIC ATED specific gravity 1.020 1.005- 1.035 Not Available [facility] (Lab Registration) [address] [place], [address], 05/05/2025 16:49:17 05/05/2005/05/2025 UA AND MICRO /CULT IF INDIC ATED blood 25 (1+) /mcL negati ve Not Available [facility] (Lab Registration) [address] [place], [address], 05/05/2025 16:49:17 05/05/2005/05/2025 UA AND MICRO /CULT IF INDIC ATED pH 5.00 5.0-7. 5 Not Available [facility] (Lab Registration) [address] [place], [address], 05/05/2025 16:49:17 05/05/2005/05/2025 UA AND MICRO /CULT IF INDIC ATED protein 500 (3+) mg/dL negati ve Not Available [facility] (Lab Registration) [address] [place], [address], 05/05/2025 16:49:17 05/05/2005/05/2025 UA AND MICRO /CULT IF INDIC ATED urobilnogen NORM mg/dL normal Not Available [facility] (Lab Registration) [address] [place], [address], 05/05/2025 16:49:17 05/05/2005/05/2025 UA AND MICRO /CULT IF INDIC ATED nitrite POSITI VE negati ve delta Not Available [facility] (Lab Registration) [address] [place], [address], 05/05/2025 16:49:17 05/05/20 25 05/05/2025 UA AND MICRO /CULT IF INDIC ATED leukocyte esterase 100 (1+) /mcL negati ve Not Available [facility] (Lab Registration) [address] [place], [address], 05/05/2025 16:49:17 05/05/20 25 05/05/2025 UA AND MICRO /CULT IF INDIC ATED culture? CONTAM INATED delta Not Available [facility] (Lab Registration) [address] [place], [address], 05/05/2025 16:49:17 05/05/2005/05/2025 UA AND MICRO /CULT IF INDIC ATED urine microscopic YES Not Available [facility] (Lab Registration) [address] [place], [address], 05/05/2025 16:49:17 05/05/20 25 05/05/2025 UA AND MICRO /CULT IF INDIC ATED RBC 5-10 0-3 Not Available [facility] (Lab Registration) [address] [place], [address], 05/05/2025 16:49:17 05/05/20 25 05/05/2025 UA AND MICRO /CULT IF INDIC ATED WBC >30 none seen delta Not Available [facility] (Lab Registration) [address] [place], [address], 05/05/2025 16:49:17 05/05/20 25 05/05/2025 UA AND MICRO /CULT IF INDIC ATED epithelial cell >30 none seen delta Not Available [facility] (Lab Registration) [address] [place], [address], 05/05/2025 16:49:17 05/05/20 25 05/05/2025 UA AND MICRO /CULT IF INDIC ATED bacteria 1+ none seen Not Available [facility] (Lab Registration) [address] [place], [address], 05/05/2025 16:49:17 05/05/20 25 05/05/2025 UA AND MICRO /CULT IF INDIC ATED mucus TRACE none seen Not Available [facility] (Lab Registration) [address] [place], [address], 05/05/2025 16:49:17 05/05/20 25 05/05/2025 UA AND MICRO /CULT IF INDIC ATED note Unles s other vigil noted testi ng perfo rmed at: [facility] [address] [place] [address] [phone] Dante maier MD CLIA: [id number] Not Available [facility] (Lab Registration) [address] [place], [address], 05/05/2025 16:49:17 Result Notes None recorded. Problems Name Problem SNOMED Code Status Onset Date Resolution Date Notes Provider Name and Address Organization Details Recorded Time Essential hypertensio n 35030272 Active 2024 Colleen Charles null, [place] - [facility] [place] [facility] [place] 5 14:57:19 Hyperlipide chad 85957560 Active 2024 Colleenjesus Charles null, [place] - [facility] [place] [facility] [place] 5 14:57:25 Type 2 diabetes mellitus 99546414 Active 2024 Colleen Charles null, [place] - [facility] [place] [facility] [place] 5 14:57:32 History of pneumonia 065593153 Active 2024 Colleen Charles null, [place] - [facility] [place] [facility] [place] 5 14:59:13 History of sepsis 3963900131328 00 Active 2024 Colleenjesus Charles null, [place] - [facility] [place] [facility] [place] 5 14:59:48 Problem Notes None recorded. 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 Procedure Notes None recorded. Medical Equipment None Reported. Allergies Allergen ID Allergen Name Allergen Category Reaction Reaction Severity Criticality Documentation Date Start Date Code Code System Note Provider Name and Address Organization Details Recorded Time 106014 prednison e medicatio n other moderate Not available 11/08/2024 8640 RxNorm JITTE RY--- okay at lower doses Erika Weiss darrell, [facility] [place] 10:38:58 Medications Name Sig Start Date Stop [...] and Address Organization Details Last Updated DateTime 157.48 cm 31.8 kg/m2 23197.6 4 g 98.2 [degF] 97 % 97 % 82 /min 14 /min 189/85 mm[Hg] Colleen Pardini [place] - [facility] [place] 11:44:12 Social History Question Answer Notes LastModified by Organizat ion Details LastModified Time Tobacco Smoking Status Never Smoker Colleen ramírez, [place] [facility] [place] 09/11/2024 14:57:52 Do You Have An Advance [...] Functional Status Question Answer Note LastModified by raksulat ion Details LastModified Time Do you use any [...] Mental Status Question Answer Note LastModified by Organizat ion Details LastModified Time Do you feel stressed (tense, restless, nervous, or anxious, or unable to sleep at night)? BN1583-1 Information not available 09/11/2024 Do you have [...] 11:57:59 Unspecified Relation Malignant neoplastic disease Ananda hernandez CHART_MERGE Not available 06/02/2025 11:57:59 Medical History Condition Response Diabetes Y Obesity Y Vision or Eye Problems Y High Cholesterol Y Hypertension Y Gynecological HistoryNo gynecological history recorded. Obstetrics History GPAL:G 0 P 0 0 0 0 Immunizations Vaccine Type Date Status Note Provider Nam e and Address Organization Details Recorded Time Influenza, MDCK, quadrivalent, PF 04/26/2021 completed Colleen Pardini null, [place] [facility] [place] [facility] [place] 05/05/2025 14:35:26 Influenza, MDCK, quadrivalent, PF 04/26/2022 completed Colleen Pardini null, [place] [facility] [place] [facility] [place] 05/05/2025 14:35:26 Hep B, adult 10/31/2001 completed Colleen Pardi ni null, [place] - [facility] [place] [facility] [place] 09/11/2024 14:55:07 Hep B, adult 05/03/2001 completed Colleen Pardi ni null, [place] [facility] [place] [facility] [place] 09/11/2024 14:55:07 Hep B, adult 05/31/2001 completed Colleen Pardi ni null, [place] [facility] [place] [facility] [place] 09/11/2024 14:55:07 Influenza, split virus, quadrivalent, PF 05/15/2020 completed Colleen Pardini null, [place] [facility] [place] [facility] [place] 05/05/2025 14:35:26 Influenza, high-dose, trivalent, PF 05/05/2025 completed Not Available [facility] 2024 11:39:57 Past Encounters Encounter ID Performer Location Encounter Start Date Encounter Closed Date Diagnosis/Indication Diagnosis SNOMED-CT Code Diagnosis ICD10 Code Diagnosis IMO Codes Diagnosis Note [id number] Kaiden Miranda MD [address] [place] [address] 05/05/2025 14:24:00 05/05/2025 14:47:56 Increased frequency of urination 635177483 R35.0 09441 Will treat patient empiricall y. We might have to adjust antibiotic s once we get the results of culture. Essential hypertension 78679430 I10 [id number] patient has been advised to follow-up with the cardiologi st that is managing her blood pressure. I have told her that in the interim it will not hurt to restart her amlodipine . She states that the only reason why it was stopped because she had ankle swelling. I have suggested she take it at night. [id number] Kaiden Miradna MD [address] [place] [address] 06/02/2025 11:33:45 06/02/2025 12:00:02 Screening mammography of bilateral breasts 0768989311 22659 Z12.31 Screening for osteoporosis 480176099 Z13.820 Screening for malignant neoplasm of colon 157341023 Z12.11 Blood pres sure outside reference range 57909622 I99.8 [id number] patient's blood pressure is being managed by her cardiologi st. It appears this stopped some of her medication s. She is hypertensi ve at this time. I have advised her to reach out to her cardiologi st in the next 24 hours to get an appointmen morales rivera she can go to the emergency department for further management . Cutaneous horn 237341316 L85.8 [id number] patient has a cutaneous horn to the right side of her forehead. [facility] for [facility] Health Concerns Section Related Observation LastModified by Organization Detai ls LastModified Time None Recorded Concern Status LastModified by Organization Details LastModified Time None Recorded Payers Encounter Date Sequence Insurance Name Policy Number Policy Moore Covered Member ID Moore Member ID Guarantor Name 06/02/2025 2 [employer]ICAID-[facility] CHOICES - FFS/TRADITIO NAL Msutapha [place] [id number] Mustapha [place] 06/02/2025 1 [employer] (MEDICARE REPLACEMENT/ ADVANTAGE - HMO) Mustapha [place] [id number] Mustapha Neal OBGym[employer] Episode No OBEpisode recorded.
[2025-06-04 11:18] LABS: Anion Gap 8.8 mEq/L (5-15); Blood Urea Nitrogen 35 mg/dl (7-17); Calcium 9.4 mg/dl (8.4-10.2); Carbon Dioxide 22 mmol/L (22.0-30.0); Chloride 113 mmol/L (98-107); Creatinine,Serum 2.00 mg/dl (0.52-1.04); Estimated Glomerular Filt Rate 25 ml/min (>60); GFR (African American) 30 ML/MIN (>60); Glucose 136 mg/dl (74-100); Potassium 4.8 mmoL/L (3.5-5.1); Sodium 139 mmol/L (136-145)
== END 2025-06-04 23:59 | disposition home or self-care (01) ==
LOC: LAB 10:01
PROVIDERS: PCP Emergency Medicine; Visit Provider Physician Assistant
DX: E78.5 Hyperlipidemia, unspecified (principal)
CPT/HCPCS: 36415; 80048